=== PATIENT | male | born 1970 | race Caucasian/White ===

== ENCOUNTER 2020-04-29 13:46 | Inpatient (IN) | payer OTHER ==
[2020-04-29 15:53] VITALS: BMI 29.1
[2020-04-29] MEDS ORDERED: MAGNESIUM CITRATE 300 ML BOTTLE PO PRN (17:00)
[2020-04-29] MEDS ORDERED: MAG HYDROX/AL HYDROX/SIMETH 30 ML UNIT-DOSE CUP PO PRN (17:00)
[2020-04-29] MEDS ORDERED: MAGNESIUM HYDROX 2400MG/30ML ORAL SUSPENSION 30 ML CUP PO PRN (17:00)
[2020-04-29] MEDS ORDERED: LOPERAMIDE HCL 2 MG CAPSULE PO PRN (17:00)
[2020-04-29] MEDS ORDERED: guaiFENesin 200 MG/10 ML 10 ML UNIT-DOSE CUPS PO PRN (17:00)
[2020-04-29] MEDS ORDERED: P-EPHED 60MG/TRIPROLIDI 2.5MG TABLET PO PRN (17:00)
[2020-04-29] MEDS: MELATONIN 5 MG TABLETS PO SCH (21:04)
[2020-04-29] MEDS: hydrOXYzine PAMOATE 25 MG CAPSULE (FP) PO PRN (21:05)
[2020-04-29] MEDS: PANTOPRAZOLE 40 MG TABLET PO SCH (21:05)
[2020-04-29] MEDS: THIAMINE HCL 100 MG TABLET (FP) PO SCH (21:05)
[2020-04-29] MEDS ORDERED: THIAMINE HCL 100 MG TABLET (FP) PO SCH (22:00)
[2020-04-30] MEDS: PRENATAL VITAMINS W/ FOLIC ACID TABLET (FP) PO SCH (10:49)
[2020-04-30] MEDS: PANTOPRAZOLE 40 MG TABLET PO SCH ×2 (10:50→21:54)
[2020-04-30] MEDS: THIAMINE HCL 100 MG TABLET (FP) PO SCH ×2 (10:50→21:55)
[2020-04-30] MEDS: hydrOXYzine PAMOATE 25 MG CAPSULE (FP) PO PRN ×2 (10:51→21:54)
[2020-04-30 11:41] LABS: ALBUMIN 3.5 g/dl (3.4-5.0); CALCIUM 9.1 mg/dL (8.5-10.1)
[2020-04-30 11:43] LABS: BLOOD UREA NITROGEN 18.1 mg/dL (7-18); HEMATOCRIT 28.9 % (35.4-49); HEMOGLOBIN 9.6 GM/dL (11.7-16.9); MCH 30.6 pg (25.7-33.7); MCHC 33.1 g/dl (32.0-35.9); MEAN CELL VOLUME 92.5 fl (80-96); MEAN PLT VOLUME 8.8 fl (7.5-11.1); PLATELET COUNT 484 K/MM3 (134-434); RBC 3.12 M/mm3 (4.00-5.60); RDW 19.4 % (11.9-15.9); WHITE BLOOD COUNT 7.6 K/mm3 (4.0-10.0)
[2020-04-30 11:44] LABS: CREATININE 0.8 mg/dL (0.55-1.3)
[2020-04-30 11:45] LABS: BILIRUBIN,TOTAL 0.6 mg/dL (0.2-1); TOT PROT 6.4 g/dl (6.4-8.2)
[2020-04-30 11:49] LABS: POTASSIUM 4.4 mmol/L (3.5-5.1)
[2020-04-30] MEDS: FOLIC ACID 1 MG TABLET (FP) PO SCH (13:44)
[2020-04-30] MEDS: FERROUS SO4 325 MG TABLET (FP) PO SCH (18:36)
[2020-04-30] MEDS: MELATONIN 5 MG TABLETS PO SCH (21:54)
[2020-04-30] MEDS: MIRTAZAPINE 30 MG TABLET PO SCH (21:56)
[2020-05-01 00:26] LABS: PH,URINE 5.5 (5.0-8.0); URINE APPEARANCE CLEAR; URINE BILIRUBIN NEGATIVE (NEGATIVE); URINE COLOR YELLOW; URINE GLUCOSE (UA) NEGATIVE (NEGATIVE); URINE KETONE NEGATIVE (NEGATIVE); URINE LEUK ESTERASE NEGATIVE (NEGATIVE); URINE NITRITE NEGATIVE (NEGATIVE); URINE PROTEIN NEGATIVE (NEGATIVE); URINE UROBILINOGEN 0.2 mg/dL (0.2-1.0)
[2020-05-01] MEDS: FERROUS SO4 325 MG TABLET (FP) PO SCH ×3 (07:14→17:39)
[2020-05-01] MEDS: FOLIC ACID 1 MG TABLET (FP) PO SCH (10:02)
[2020-05-01] MEDS: PANTOPRAZOLE 40 MG TABLET PO SCH ×2 (10:02→21:20)
[2020-05-01] MEDS: PRENATAL VITAMINS W/ FOLIC ACID TABLET (FP) PO SCH (10:02)
[2020-05-01] MEDS: THIAMINE HCL 100 MG TABLET (FP) PO SCH ×2 (10:04→21:20)
[2020-05-01] MEDS: NALTREXONE HCL 50 MG TABLET PO SCH (14:29)
[2020-05-01] MEDS: MELATONIN 5 MG TABLETS PO SCH (21:20)
[2020-05-01] MEDS: MIRTAZAPINE 30 MG TABLET PO SCH (21:20)
[2020-05-01] MEDS: hydrOXYzine PAMOATE 25 MG CAPSULE (FP) PO PRN (21:20)
[2020-05-02] MEDS ORDERED: MASKS NR ONE (06:01)
[2020-05-02] MEDS: FERROUS SO4 325 MG TABLET (FP) PO SCH ×3 (07:11→17:08)
[2020-05-02] MEDS: THIAMINE HCL 100 MG TABLET (FP) PO SCH ×2 (10:45→21:59)
[2020-05-02] MEDS: PANTOPRAZOLE 40 MG TABLET PO SCH ×2 (10:45→21:59)
[2020-05-02] MEDS: FOLIC ACID 1 MG TABLET (FP) PO SCH (10:45)
[2020-05-02] MEDS: NALTREXONE HCL 50 MG TABLET PO SCH (10:45)
[2020-05-02] MEDS: PRENATAL VITAMINS W/ FOLIC ACID TABLET (FP) PO SCH (10:45)
[2020-05-02] MEDS: MIRTAZAPINE 30 MG TABLET PO SCH (21:59)
[2020-05-02] MEDS: MELATONIN 5 MG TABLETS PO SCH (21:59)
[2020-05-03] MEDS: FERROUS SO4 325 MG TABLET (FP) PO SCH ×3 (07:12→17:38)
[2020-05-03] MEDS ORDERED: PT OWN MED DRAWER 7, Y5N ONE (09:39)
[2020-05-03] MEDS: FOLIC ACID 1 MG TABLET (FP) PO SCH (10:54)
[2020-05-03] MEDS: NALTREXONE HCL 50 MG TABLET PO SCH (10:54)
[2020-05-03] MEDS: THIAMINE HCL 100 MG TABLET (FP) PO SCH ×2 (10:54→22:06)
[2020-05-03] MEDS: PRENATAL VITAMINS W/ FOLIC ACID TABLET (FP) PO SCH (10:54)
[2020-05-03] MEDS: PANTOPRAZOLE 40 MG TABLET PO SCH ×2 (10:54→22:06)
[2020-05-03] MEDS: MIRTAZAPINE 30 MG TABLET PO SCH (22:06)
[2020-05-03] MEDS: MELATONIN 5 MG TABLETS PO SCH (22:07)
[2020-05-03] MEDS: hydrOXYzine PAMOATE 25 MG CAPSULE (FP) PO PRN (22:07)
[2020-05-04] MEDS: FERROUS SO4 325 MG TABLET (FP) PO SCH ×3 (08:34→18:09)
[2020-05-04] MEDS: PANTOPRAZOLE 40 MG TABLET PO SCH ×2 (10:33→21:41)
[2020-05-04] MEDS: PRENATAL VITAMINS W/ FOLIC ACID TABLET (FP) PO SCH (10:33)
[2020-05-04] MEDS: FOLIC ACID 1 MG TABLET (FP) PO SCH (10:33)
[2020-05-04] MEDS: hydrOXYzine PAMOATE 25 MG CAPSULE (FP) PO PRN ×2 (10:33→21:41)
[2020-05-04] MEDS: NALTREXONE HCL 50 MG TABLET PO SCH (10:33)
[2020-05-04] MEDS: THIAMINE HCL 100 MG TABLET (FP) PO SCH ×2 (10:34→21:41)
[2020-05-04] MEDS: MELATONIN 5 MG TABLETS PO SCH (21:41)
[2020-05-04] MEDS: MIRTAZAPINE 30 MG TABLET PO SCH (21:41)
[2020-05-05] MEDS: FERROUS SO4 325 MG TABLET (FP) PO SCH ×3 (07:34→17:36)
[2020-05-05] MEDS: PRENATAL VITAMINS W/ FOLIC ACID TABLET (FP) PO SCH (10:33)
[2020-05-05] MEDS: PANTOPRAZOLE 40 MG TABLET PO SCH ×2 (10:34→21:55)
[2020-05-05] MEDS: NALTREXONE HCL 50 MG TABLET PO SCH (10:34)
[2020-05-05] MEDS: FOLIC ACID 1 MG TABLET (FP) PO SCH (10:34)
[2020-05-05] MEDS: THIAMINE HCL 100 MG TABLET (FP) PO SCH ×2 (10:35→21:55)
[2020-05-05] MEDS ORDERED: PT OWN MED DRAWER 7, Y5N ONE (10:43)
[2020-05-05] MEDS: NICOTINE 21 MG/24 HOURS TOPICAL PATCH TD SCH (12:09)
[2020-05-05] MEDS: MIRTAZAPINE 30 MG TABLET PO SCH (21:55)
[2020-05-05] MEDS: hydrOXYzine PAMOATE 25 MG CAPSULE (FP) PO PRN (21:56)
[2020-05-05] MEDS: MELATONIN 5 MG TABLETS PO SCH (21:56)
[2020-05-06] MEDS: FERROUS SO4 325 MG TABLET (FP) PO SCH ×3 (07:12→16:58)
[2020-05-06] MEDS: PANTOPRAZOLE 40 MG TABLET PO SCH ×2 (10:32→22:01)
[2020-05-06] MEDS: PRENATAL VITAMINS W/ FOLIC ACID TABLET (FP) PO SCH (10:32)
[2020-05-06] MEDS: FOLIC ACID 1 MG TABLET (FP) PO SCH (10:32)
[2020-05-06] MEDS: THIAMINE HCL 100 MG TABLET (FP) PO SCH ×2 (10:33→22:01)
[2020-05-06] MEDS: NALTREXONE HCL 50 MG TABLET PO SCH (10:33)
[2020-05-06] MEDS: NICOTINE 21 MG/24 HOURS TOPICAL PATCH TD SCH (10:34)
[2020-05-06] MEDS: NICOTINE POLACRILEX 4 MG GUM BUC PRN ×3 (10:34→16:58)
[2020-05-06] MEDS: MIRTAZAPINE 30 MG TABLET PO SCH (22:01)
[2020-05-06] MEDS: hydrOXYzine PAMOATE 25 MG CAPSULE (FP) PO PRN (22:01)
[2020-05-06] MEDS: MELATONIN 5 MG TABLETS PO SCH (22:01)
[2020-05-07] MEDS: FERROUS SO4 325 MG TABLET (FP) PO SCH ×3 (07:02→16:54)
[2020-05-07] MEDS: FOLIC ACID 1 MG TABLET (FP) PO SCH (10:42)
[2020-05-07] MEDS: PRENATAL VITAMINS W/ FOLIC ACID TABLET (FP) PO SCH (10:42)
[2020-05-07] MEDS: THIAMINE HCL 100 MG TABLET (FP) PO SCH ×2 (10:42→21:04)
[2020-05-07] MEDS: PANTOPRAZOLE 40 MG TABLET PO SCH ×2 (10:42→21:04)
[2020-05-07] MEDS: NALTREXONE HCL 50 MG TABLET PO SCH (10:42)
[2020-05-07] MEDS: NICOTINE 21 MG/24 HOURS TOPICAL PATCH TD SCH (10:43)
[2020-05-07] MEDS: NICOTINE POLACRILEX 4 MG GUM BUC PRN ×3 (10:44→21:05)
[2020-05-07] MEDS: MELATONIN 5 MG TABLETS PO SCH (21:04)
[2020-05-07] MEDS: MIRTAZAPINE 30 MG TABLET PO SCH (21:04)
[2020-05-07] MEDS: hydrOXYzine PAMOATE 25 MG CAPSULE (FP) PO PRN (21:05)
[2020-05-08] MEDS: FERROUS SO4 325 MG TABLET (FP) PO SCH ×3 (07:16→17:30)
[2020-05-08] MEDS: THIAMINE HCL 100 MG TABLET (FP) PO SCH ×2 (10:43→22:06)
[2020-05-08] MEDS: PANTOPRAZOLE 40 MG TABLET PO SCH ×2 (10:43→22:06)
[2020-05-08] MEDS: PRENATAL VITAMINS W/ FOLIC ACID TABLET (FP) PO SCH (10:43)
[2020-05-08] MEDS: NICOTINE 21 MG/24 HOURS TOPICAL PATCH TD SCH (10:43)
[2020-05-08] MEDS: FOLIC ACID 1 MG TABLET (FP) PO SCH (10:43)
[2020-05-08] MEDS: NALTREXONE HCL 50 MG TABLET PO SCH (10:44)
[2020-05-08] MEDS: NICOTINE POLACRILEX 4 MG GUM BUC PRN ×3 (10:45→22:07)
[2020-05-08] MEDS: hydrOXYzine PAMOATE 25 MG CAPSULE (FP) PO PRN (22:06)
[2020-05-08] MEDS: MELATONIN 5 MG TABLETS PO SCH (22:06)
[2020-05-08] MEDS: MIRTAZAPINE 30 MG TABLET PO SCH (22:07)
[2020-05-09] MEDS: FERROUS SO4 325 MG TABLET (FP) PO SCH ×3 (07:02→17:39)
[2020-05-09] MEDS: THIAMINE HCL 100 MG TABLET (FP) PO SCH ×2 (10:26→21:46)
[2020-05-09] MEDS: FOLIC ACID 1 MG TABLET (FP) PO SCH (10:26)
[2020-05-09] MEDS: PANTOPRAZOLE 40 MG TABLET PO SCH ×2 (10:26→21:46)
[2020-05-09] MEDS: PRENATAL VITAMINS W/ FOLIC ACID TABLET (FP) PO SCH (10:26)
[2020-05-09] MEDS: NICOTINE 21 MG/24 HOURS TOPICAL PATCH TD SCH (10:27)
[2020-05-09] MEDS: NALTREXONE HCL 50 MG TABLET PO SCH (10:27)
[2020-05-09] MEDS: NICOTINE POLACRILEX 4 MG GUM BUC PRN ×3 (10:29→21:47)
[2020-05-09] MEDS: ASPIRIN 81 MG CHEWABLE TABLETS PO SCH (14:49)
[2020-05-09] MEDS: NIFEdipine E.R. 30 MG TABLET PO SCH (14:49)
[2020-05-09] MEDS: hydrOXYzine PAMOATE 25 MG CAPSULE (FP) PO PRN (21:46)
[2020-05-09] MEDS: MELATONIN 5 MG TABLETS PO SCH (21:46)
[2020-05-09] MEDS: MIRTAZAPINE 30 MG TABLET PO SCH (21:46)
[2020-05-10] MEDS: FERROUS SO4 325 MG TABLET (FP) PO SCH ×3 (07:35→17:16)
[2020-05-10] MEDS: PANTOPRAZOLE 40 MG TABLET PO SCH ×2 (10:07→21:21)
[2020-05-10] MEDS: PRENATAL VITAMINS W/ FOLIC ACID TABLET (FP) PO SCH (10:07)
[2020-05-10] MEDS: hydrOXYzine PAMOATE 25 MG CAPSULE (FP) PO PRN ×2 (10:07→21:21)
[2020-05-10] MEDS: NIFEdipine E.R. 30 MG TABLET PO SCH (10:07)
[2020-05-10] MEDS: ASPIRIN 81 MG CHEWABLE TABLETS PO SCH (10:07)
[2020-05-10] MEDS: NALTREXONE HCL 50 MG TABLET PO SCH (10:08)
[2020-05-10] MEDS: NICOTINE POLACRILEX 4 MG GUM BUC PRN ×2 (10:08→12:11)
[2020-05-10] MEDS: THIAMINE HCL 100 MG TABLET (FP) PO SCH ×2 (10:08→21:21)
[2020-05-10] MEDS: NICOTINE 21 MG/24 HOURS TOPICAL PATCH TD SCH (10:08)
[2020-05-10] MEDS: FOLIC ACID 1 MG TABLET (FP) PO SCH (10:08)
[2020-05-10] MEDS: MELATONIN 5 MG TABLETS PO SCH (21:20)
[2020-05-10] MEDS: MIRTAZAPINE 30 MG TABLET PO SCH (21:21)
[2020-05-11] MEDS: FERROUS SO4 325 MG TABLET (FP) PO SCH ×3 (07:23→17:09)
[2020-05-11] MEDS: PRENATAL VITAMINS W/ FOLIC ACID TABLET (FP) PO SCH (10:01)
[2020-05-11] MEDS: NALTREXONE HCL 50 MG TABLET PO SCH (10:01)
[2020-05-11] MEDS: ASPIRIN 81 MG CHEWABLE TABLETS PO SCH (10:01)
[2020-05-11] MEDS: NIFEdipine E.R. 30 MG TABLET PO SCH (10:01)
[2020-05-11] MEDS: PANTOPRAZOLE 40 MG TABLET PO SCH ×2 (10:01→21:57)
[2020-05-11] MEDS: NICOTINE 21 MG/24 HOURS TOPICAL PATCH TD SCH (10:01)
[2020-05-11] MEDS: FOLIC ACID 1 MG TABLET (FP) PO SCH (10:01)
[2020-05-11] MEDS: NICOTINE POLACRILEX 4 MG GUM BUC PRN (10:05)
[2020-05-11] MEDS: THIAMINE HCL 100 MG TABLET (FP) PO SCH ×2 (10:54→21:57)
[2020-05-11] MEDS: MIRTAZAPINE 30 MG TABLET PO SCH (21:57)
[2020-05-11] MEDS: hydrOXYzine PAMOATE 25 MG CAPSULE (FP) PO PRN (21:57)
[2020-05-11] MEDS: MELATONIN 5 MG TABLETS PO SCH (21:58)
[2020-05-12] MEDS: PRENATAL VITAMINS W/ FOLIC ACID TABLET (FP) PO SCH (10:22)
[2020-05-12] MEDS: FERROUS SO4 325 MG TABLET (FP) PO SCH ×3 (10:23→17:31)
[2020-05-12] MEDS: ASPIRIN 81 MG CHEWABLE TABLETS PO SCH (10:23)
[2020-05-12] MEDS: PANTOPRAZOLE 40 MG TABLET PO SCH ×2 (10:23→21:26)
[2020-05-12] MEDS: THIAMINE HCL 100 MG TABLET (FP) PO SCH ×2 (10:23→21:26)
[2020-05-12] MEDS: NALTREXONE HCL 50 MG TABLET PO SCH (10:24)
[2020-05-12] MEDS: NIFEdipine E.R. 30 MG TABLET PO SCH (10:24)
[2020-05-12] MEDS: NICOTINE 21 MG/24 HOURS TOPICAL PATCH TD SCH (10:25)
[2020-05-12] MEDS: FOLIC ACID 1 MG TABLET (FP) PO SCH (10:25)
[2020-05-12] MEDS: NICOTINE POLACRILEX 4 MG GUM BUC PRN ×3 (10:26→21:27)
[2020-05-12] MEDS ORDERED: MASKS NR ONE (20:00)
[2020-05-12] MEDS: MELATONIN 5 MG TABLETS PO SCH (21:27)
[2020-05-12] MEDS: hydrOXYzine PAMOATE 25 MG CAPSULE (FP) PO PRN (21:27)
[2020-05-12] MEDS: MIRTAZAPINE 30 MG TABLET PO SCH (21:27)
[2020-05-13] MEDS: FERROUS SO4 325 MG TABLET (FP) PO SCH ×3 (07:13→17:42)
[2020-05-13] MEDS: NICOTINE 21 MG/24 HOURS TOPICAL PATCH TD SCH (10:17)
[2020-05-13] MEDS: PRENATAL VITAMINS W/ FOLIC ACID TABLET (FP) PO SCH (10:17)
[2020-05-13] MEDS: ASPIRIN 81 MG CHEWABLE TABLETS PO SCH (10:17)
[2020-05-13] MEDS: PANTOPRAZOLE 40 MG TABLET PO SCH ×2 (10:17→22:05)
[2020-05-13] MEDS: THIAMINE HCL 100 MG TABLET (FP) PO SCH ×2 (10:17→22:05)
[2020-05-13] MEDS: NALTREXONE HCL 50 MG TABLET PO SCH (10:18)
[2020-05-13] MEDS: FOLIC ACID 1 MG TABLET (FP) PO SCH (10:18)
[2020-05-13] MEDS: NIFEdipine E.R. 30 MG TABLET PO SCH (10:18)
[2020-05-13] MEDS: NICOTINE POLACRILEX 4 MG GUM BUC PRN ×2 (10:23→17:42)
[2020-05-13] MEDS: MIRTAZAPINE 30 MG TABLET PO SCH (22:05)
[2020-05-13] MEDS: MELATONIN 5 MG TABLETS PO SCH (22:05)
[2020-05-13] MEDS: hydrOXYzine PAMOATE 25 MG CAPSULE (FP) PO PRN (22:06)
[2020-05-14] MEDS: FERROUS SO4 325 MG TABLET (FP) PO SCH ×3 (07:31→17:15)
[2020-05-14] MEDS: ASPIRIN 81 MG CHEWABLE TABLETS PO SCH (10:04)
[2020-05-14] MEDS: PANTOPRAZOLE 40 MG TABLET PO SCH ×2 (10:04→21:40)
[2020-05-14] MEDS: THIAMINE HCL 100 MG TABLET (FP) PO SCH ×2 (10:04→21:40)
[2020-05-14] MEDS: NICOTINE 21 MG/24 HOURS TOPICAL PATCH TD SCH (10:04)
[2020-05-14] MEDS: PRENATAL VITAMINS W/ FOLIC ACID TABLET (FP) PO SCH (10:04)
[2020-05-14] MEDS: NALTREXONE HCL 50 MG TABLET PO SCH (10:05)
[2020-05-14] MEDS: NIFEdipine E.R. 30 MG TABLET PO SCH (10:05)
[2020-05-14] MEDS: FOLIC ACID 1 MG TABLET (FP) PO SCH (10:05)
[2020-05-14] MEDS: hydrOXYzine PAMOATE 25 MG CAPSULE (FP) PO PRN ×2 (10:06→21:40)
[2020-05-14] MEDS: NICOTINE POLACRILEX 4 MG GUM BUC PRN ×2 (10:07→21:42)
[2020-05-14] MEDS: MELATONIN 5 MG TABLETS PO SCH (21:40)
[2020-05-14] MEDS: MIRTAZAPINE 30 MG TABLET PO SCH (21:40)
[2020-05-15] MEDS: FERROUS SO4 325 MG TABLET (FP) PO SCH ×3 (07:28→17:22)
[2020-05-15] MEDS: NIFEdipine E.R. 30 MG TABLET PO SCH (09:59)
[2020-05-15] MEDS: PRENATAL VITAMINS W/ FOLIC ACID TABLET (FP) PO SCH (09:59)
[2020-05-15] MEDS: PANTOPRAZOLE 40 MG TABLET PO SCH ×2 (09:59→21:06)
[2020-05-15] MEDS: ASPIRIN 81 MG CHEWABLE TABLETS PO SCH (09:59)
[2020-05-15] MEDS: NALTREXONE HCL 50 MG TABLET PO SCH (10:00)
[2020-05-15] MEDS: THIAMINE HCL 100 MG TABLET (FP) PO SCH ×2 (10:00→21:06)
[2020-05-15] MEDS: NICOTINE 21 MG/24 HOURS TOPICAL PATCH TD SCH (10:00)
[2020-05-15] MEDS: FOLIC ACID 1 MG TABLET (FP) PO SCH (10:00)
[2020-05-15] MEDS: MIRTAZAPINE 30 MG TABLET PO SCH (21:06)
[2020-05-15] MEDS: hydrOXYzine PAMOATE 25 MG CAPSULE (FP) PO PRN (21:06)
[2020-05-15] MEDS: MELATONIN 5 MG TABLETS PO SCH (21:06)
[2020-05-15] MEDS: NICOTINE POLACRILEX 4 MG GUM BUC PRN (21:06)
[2020-05-16] MEDS: FERROUS SO4 325 MG TABLET (FP) PO SCH ×3 (07:10→17:03)
[2020-05-16] MEDS: PRENATAL VITAMINS W/ FOLIC ACID TABLET (FP) PO SCH (09:48)
[2020-05-16] MEDS: PANTOPRAZOLE 40 MG TABLET PO SCH ×2 (09:50→21:35)
[2020-05-16] MEDS: THIAMINE HCL 100 MG TABLET (FP) PO SCH ×2 (09:50→21:35)
[2020-05-16] MEDS: ASPIRIN 81 MG CHEWABLE TABLETS PO SCH (09:50)
[2020-05-16] MEDS: hydrOXYzine PAMOATE 25 MG CAPSULE (FP) PO PRN ×2 (09:50→21:35)
[2020-05-16] MEDS: NICOTINE POLACRILEX 4 MG GUM BUC PRN ×3 (09:50→21:36)
[2020-05-16] MEDS: FOLIC ACID 1 MG TABLET (FP) PO SCH (09:51)
[2020-05-16] MEDS: NICOTINE 21 MG/24 HOURS TOPICAL PATCH TD SCH (09:52)
[2020-05-16] MEDS: NIFEdipine E.R. 30 MG TABLET PO SCH (09:53)
[2020-05-16] MEDS: NALTREXONE HCL 50 MG TABLET PO SCH (09:53)
[2020-05-16] MEDS: MIRTAZAPINE 30 MG TABLET PO SCH (21:35)
[2020-05-16] MEDS: MELATONIN 5 MG TABLETS PO SCH (21:35)
[2020-05-17] MEDS: FERROUS SO4 325 MG TABLET (FP) PO SCH ×3 (07:01→17:47)
[2020-05-17] MEDS: PRENATAL VITAMINS W/ FOLIC ACID TABLET (FP) PO SCH (09:44)
[2020-05-17] MEDS: FOLIC ACID 1 MG TABLET (FP) PO SCH (09:44)
[2020-05-17] MEDS: ASPIRIN 81 MG CHEWABLE TABLETS PO SCH (09:44)
[2020-05-17] MEDS: PANTOPRAZOLE 40 MG TABLET PO SCH ×2 (09:44→21:56)
[2020-05-17] MEDS: THIAMINE HCL 100 MG TABLET (FP) PO SCH ×2 (09:44→21:56)
[2020-05-17] MEDS: NICOTINE 21 MG/24 HOURS TOPICAL PATCH TD SCH (09:44)
[2020-05-17] MEDS: NIFEdipine E.R. 30 MG TABLET PO SCH (09:45)
[2020-05-17] MEDS: NALTREXONE HCL 50 MG TABLET PO SCH (09:45)
[2020-05-17] MEDS: hydrOXYzine PAMOATE 25 MG CAPSULE (FP) PO PRN ×2 (09:46→21:56)
[2020-05-17] MEDS: NICOTINE POLACRILEX 4 MG GUM BUC PRN ×3 (09:47→21:57)
[2020-05-17] MEDS: MIRTAZAPINE 30 MG TABLET PO SCH (21:56)
[2020-05-17] MEDS: MELATONIN 5 MG TABLETS PO SCH (21:56)
[2020-05-18] MEDS: FERROUS SO4 325 MG TABLET (FP) PO SCH ×3 (07:03→17:04)
[2020-05-18] MEDS: NIFEdipine E.R. 30 MG TABLET PO SCH (09:42)
[2020-05-18] MEDS: THIAMINE HCL 100 MG TABLET (FP) PO SCH ×2 (09:42→21:23)
[2020-05-18] MEDS: PRENATAL VITAMINS W/ FOLIC ACID TABLET (FP) PO SCH (09:42)
[2020-05-18] MEDS: ASPIRIN 81 MG CHEWABLE TABLETS PO SCH (09:42)
[2020-05-18] MEDS: PANTOPRAZOLE 40 MG TABLET PO SCH ×2 (09:42→21:22)
[2020-05-18] MEDS: FOLIC ACID 1 MG TABLET (FP) PO SCH (09:42)
[2020-05-18] MEDS: NALTREXONE HCL 50 MG TABLET PO SCH (09:43)
[2020-05-18] MEDS: NICOTINE 21 MG/24 HOURS TOPICAL PATCH TD SCH (09:43)
[2020-05-18] MEDS: NICOTINE POLACRILEX 4 MG GUM BUC PRN ×4 (09:44→21:23)
[2020-05-18] MEDS: MIRTAZAPINE 30 MG TABLET PO SCH (21:22)
[2020-05-18] MEDS: MELATONIN 5 MG TABLETS PO SCH (21:23)
[2020-05-18] MEDS: hydrOXYzine PAMOATE 25 MG CAPSULE (FP) PO PRN (21:23)
[2020-05-19 06:58] VITALS: BP 141/92; PULSE 97; TEMP 97.5
[2020-05-19] MEDS: FERROUS SO4 325 MG TABLET (FP) PO SCH (07:18)
[2020-05-19] MEDS ORDERED: PT OWN MED DRAWER 7, Y5N ONE (09:03)
[2020-05-19] MEDS: PRENATAL VITAMINS W/ FOLIC ACID TABLET (FP) PO SCH (10:04)
[2020-05-19] MEDS: FOLIC ACID 1 MG TABLET (FP) PO SCH (10:04)
[2020-05-19] MEDS: PANTOPRAZOLE 40 MG TABLET PO SCH (10:04)
[2020-05-19] MEDS: NIFEdipine E.R. 30 MG TABLET PO SCH (10:04)
[2020-05-19] MEDS: NALTREXONE HCL 50 MG TABLET PO SCH (10:04)
[2020-05-19] MEDS: NICOTINE 21 MG/24 HOURS TOPICAL PATCH TD SCH (10:04)
[2020-05-19] MEDS: ASPIRIN 81 MG CHEWABLE TABLETS PO SCH (10:04)
[2020-05-19] MEDS: NICOTINE POLACRILEX 4 MG GUM BUC PRN (10:05)
[2020-05-19] MEDS: THIAMINE HCL 100 MG TABLET (FP) PO SCH (10:07)
== END 2020-05-19 10:13 | disposition home or self-care (01) | DRG 772 ==
LOC: YASAS 13:46 → Y5N 18:07
PROVIDERS: ADMIT Allergy & Immunology; ATTEND Allergy & Immunology
PROC: HZ42ZZZ Group Counseling for Substance Abuse Treatment, Cognitive-Behavioral (ICD-10-PCS; principal; 2020-04-29)
DX: F10.20 Alcohol dependence, uncomplicated (principal); F10.24 Alcohol dependence with alcohol-induced mood disorder; F10.282 Alcohol dependence with alcohol-induced sleep disorder; F17.210 Nicotine dependence, cigarettes, uncomplicated; D64.9 Anemia, unspecified; I10 Essential (primary) hypertension; K21.9 Gastro-esophageal reflux disease without esophagitis; K44.9 Diaphragmatic hernia without obstruction or gangrene; K64.8 Other hemorrhoids; B19.10 Unspecified viral hepatitis B without hepatic coma; Z87.19 Personal history of other diseases of the digestive system; R60.0 Localized edema; Z59.0 Homelessness
CPT/HCPCS: 36415; 80053; 81003; 85027; 86780; C9803; U0003

== ENCOUNTER 2021-03-27 11:01 | Inpatient (IN) | payer OTHER ==
[2021-03-27] MEDS ORDERED: MAG HYDROX/AL HYDROX/SIMETH 30 ML UNIT-DOSE CUP PO PRN (11:26)
[2021-03-27] MEDS ORDERED: ACETAMINOPHEN 325 MG TABLET (FP) PO PRN ×2 (11:26)
[2021-03-27] MEDS ORDERED: BISMUTH SUBSALICYLATE 262 MG/15 ML BTL PO PRN (11:26)
[2021-03-27] MEDS ORDERED: ONDANSETRON *ODT* 4 MG TABLET SL PRN (11:26)
[2021-03-27] MEDS ORDERED: MAGNESIUM HYDROX 2400MG/30ML ORAL SUSPENSION 30 ML CUP PO PRN (11:26)
[2021-03-27] MEDS ORDERED: NICOTINE 10 MG CARTRIDGE (INHALER) IH PRN (11:26)
[2021-03-27] MEDS ORDERED: MENTHOL/PHENOL 1 EACH UD MM PRN (11:26)
[2021-03-27] MEDS ORDERED: MAGNESIUM CITRATE 300 ML BOTTLE PO PRN (11:26)
[2021-03-27] MEDS ORDERED: LORazepam 1 MG TABLET PO PRN (11:26)
[2021-03-27] MEDS ORDERED: IBUPROFEN 400 MG TABLET (FP) PO PRN (11:26)
[2021-03-27] MEDS ORDERED: NICOTINE 7 MG/24 HOURS TOPICAL PATCH TD SCH (11:30)
[2021-03-27 11:57] VITALS: BMI 26.0
[2021-03-27] MEDS: PRENATAL VITAMINS W/ FOLIC ACID TABLET (FP) PO SCH (13:56)
[2021-03-27] MEDS: LORazepam 2 MG TABLET PO SCH ×3 (13:56→22:16)
[2021-03-27] MEDS: hydrOXYzine PAMOATE 25 MG CAPSULE (FP) PO SCH ×3 (14:46→22:16)
[2021-03-27 14:48] LABS: HEMATOCRIT 36.4 % (35.4-49); HEMOGLOBIN 12.1 GM/dL (11.7-16.9); MCH 32.8 pg (25.7-33.7); MCHC 33.3 g/dl (32.0-35.9); MEAN CELL VOLUME 98.6 fl (80-96); PLATELET COUNT 230 10^3/uL (134-434); RBC 3.69 M/mm3 (4.00-5.60); RDW 16.4 % (11.9-15.9); WHITE BLOOD COUNT 7.4 K/mm3 (4.0-10.0)
[2021-03-27 15:00] LABS: CALCIUM 8.5 mg/dL (8.5-10.1)
[2021-03-27 15:01] LABS: ALBUMIN 3.5 g/dl (3.4-5.0); BLOOD UREA NITROGEN 8.7 mg/dL (7-18)
[2021-03-27 15:04] LABS: CREATININE 0.8 mg/dL (0.55-1.3)
[2021-03-27 15:05] LABS: BILIRUBIN,TOTAL 1.4 mg/dL (0.2-1)
[2021-03-27 15:06] LABS: TOT PROT 6.8 g/dl (6.4-8.2)
[2021-03-27] MEDS ORDERED: cloNIDine HCL 0.1 MG TABLET PO ONE ×2 (17:33→21:30)
[2021-03-27] MEDS: MELATONIN 5 MG TABLETS PO SCH (22:16)
[2021-03-27] MEDS: MIRTAZAPINE 15 MG TABLET (FP) PO SCH (22:16)
[2021-03-27] MEDS: THIAMINE HCL 100 MG TABLET (FP) PO SCH (22:16)
[2021-03-28] MEDS: LORazepam 2 MG TABLET PO SCH ×4 (05:45→22:18)
[2021-03-28] MEDS: hydrOXYzine PAMOATE 25 MG CAPSULE (FP) PO SCH ×5 (05:45→22:18)
[2021-03-28] MEDS: PRENATAL VITAMINS W/ FOLIC ACID TABLET (FP) PO SCH (10:56)
[2021-03-28] MEDS: NICOTINE 21 MG/24 HOURS TOPICAL PATCH TD SCH (10:56)
[2021-03-28] MEDS: ASPIRIN 81 MG CHEWABLE TABLETS PO SCH (10:56)
[2021-03-28] MEDS: PANTOPRAZOLE 40 MG TABLET PO SCH (10:56)
[2021-03-28] MEDS: NIFEdipine E.R. 30 MG TABLET PO SCH (10:56)
[2021-03-28] MEDS: MIRTAZAPINE 15 MG TABLET (FP) PO SCH (22:18)
[2021-03-28] MEDS: METHOCARBAMOL 500 MG TABLET PO PRN (22:18)
[2021-03-28] MEDS: THIAMINE HCL 100 MG TABLET (FP) PO SCH (22:18)
[2021-03-28] MEDS: MELATONIN 5 MG TABLETS PO SCH (22:18)
[2021-03-29] MEDS: LORazepam 1 MG TABLET PO SCH ×4 (05:22→22:14)
[2021-03-29] MEDS: hydrOXYzine PAMOATE 25 MG CAPSULE (FP) PO SCH ×5 (05:22→22:15)
[2021-03-29] MEDS: PRENATAL VITAMINS W/ FOLIC ACID TABLET (FP) PO SCH (10:36)
[2021-03-29] MEDS: ASPIRIN 81 MG CHEWABLE TABLETS PO SCH (10:36)
[2021-03-29] MEDS: NICOTINE 21 MG/24 HOURS TOPICAL PATCH TD SCH (10:36)
[2021-03-29] MEDS: NIFEdipine E.R. 30 MG TABLET PO SCH (10:36)
[2021-03-29] MEDS: PANTOPRAZOLE 40 MG TABLET PO SCH (10:37)
[2021-03-29] MEDS: THIAMINE HCL 100 MG TABLET (FP) PO SCH (22:14)
[2021-03-29] MEDS: MIRTAZAPINE 15 MG TABLET (FP) PO SCH (22:14)
[2021-03-29] MEDS: MELATONIN 5 MG TABLETS PO SCH (22:14)
[2021-03-30] MEDS ORDERED: LORazepam 0.5 MG TABLET PO PRN
[2021-03-30] MEDS: LORazepam 0.5 MG TABLET PO SCH ×4 (05:27→22:25)
[2021-03-30] MEDS: hydrOXYzine PAMOATE 25 MG CAPSULE (FP) PO SCH ×5 (07:15→22:26)
[2021-03-30] MEDS: PRENATAL VITAMINS W/ FOLIC ACID TABLET (FP) PO SCH (10:18)
[2021-03-30] MEDS: ASPIRIN 81 MG CHEWABLE TABLETS PO SCH (10:18)
[2021-03-30] MEDS: METHOCARBAMOL 500 MG TABLET PO PRN (10:18)
[2021-03-30] MEDS: NICOTINE 21 MG/24 HOURS TOPICAL PATCH TD SCH (10:18)
[2021-03-30] MEDS: NIFEdipine E.R. 30 MG TABLET PO SCH (10:18)
[2021-03-30] MEDS: PANTOPRAZOLE 40 MG TABLET PO SCH (10:18)
[2021-03-30 12:59] LABS: BILIRUBIN,TOTAL 0.9 mg/dL (0.2-1)
[2021-03-30] MEDS: MELATONIN 5 MG TABLETS PO SCH (22:26)
[2021-03-30] MEDS: MIRTAZAPINE 15 MG TABLET (FP) PO SCH (22:26)
[2021-03-30] MEDS: THIAMINE HCL 100 MG TABLET (FP) PO SCH (22:26)
[2021-03-31] MEDS ORDERED: LORazepam 0.5 MG TABLET PO ONE (05:00)
[2021-03-31] MEDS: hydrOXYzine PAMOATE 25 MG CAPSULE (FP) PO SCH ×4 (05:09→18:20)
[2021-03-31] MEDS: NIFEdipine E.R. 30 MG TABLET PO SCH (10:15)
[2021-03-31] MEDS: ASPIRIN 81 MG CHEWABLE TABLETS PO SCH (10:15)
[2021-03-31] MEDS: PANTOPRAZOLE 40 MG TABLET PO SCH (10:15)
[2021-03-31] MEDS: NICOTINE 21 MG/24 HOURS TOPICAL PATCH TD SCH (10:15)
[2021-03-31] MEDS: PRENATAL VITAMINS W/ FOLIC ACID TABLET (FP) PO SCH (10:15)
[2021-03-31 17:17] VITALS: BP 134/82; PULSE 86; TEMP 98.2
== END 2021-03-31 18:25 | disposition other institution (70) | DRG 775 ==
LOC: YASAS 11:01 → Y3N 12:59
PROVIDERS: ADMIT Allergy & Immunology; ATTEND Allergy & Immunology
PROC: HZ2ZZZZ Detoxification Services for Substance Abuse Treatment (ICD-10-PCS; principal; 2021-03-27)
DX: F10.230 Alcohol dependence with withdrawal, uncomplicated (principal); F17.210 Nicotine dependence, cigarettes, uncomplicated; F10.282 Alcohol dependence with alcohol-induced sleep disorder; F10.24 Alcohol dependence with alcohol-induced mood disorder; B19.10 Unspecified viral hepatitis B without hepatic coma; I10 Essential (primary) hypertension; R17 Unspecified jaundice; R00.1 Bradycardia, unspecified; R74.01 Elevation of levels of liver transaminase levels; Z86.59 Personal history of other mental and behavioral disorders; Z87.19 Personal history of other diseases of the digestive system; Z86.69 Personal history of other diseases of the nervous system and sense organs
CPT/HCPCS: 36415; 71046-TC-FY; 80053; 82247; 82947; 82962; 83036; 84450; 84460; 85027; 86780; C9803; J0735; U0003; U0005

== ENCOUNTER 2021-03-31 18:35 | Inpatient (IN) | payer OTHER ==
[2021-03-31] MEDS ORDERED: LOPERAMIDE HCL 2 MG CAPSULE PO PRN (21:44)
[2021-03-31] MEDS ORDERED: MAGNESIUM CITRATE 300 ML BOTTLE PO PRN (21:44)
[2021-03-31] MEDS ORDERED: IBUPROFEN 400 MG TABLET (FP) PO PRN (21:44)
[2021-03-31] MEDS ORDERED: MAG HYDROX/AL HYDROX/SIMETH 30 ML UNIT-DOSE CUP PO PRN (21:44)
[2021-03-31] MEDS ORDERED: P-EPHED 60MG/TRIPROLIDI 2.5MG TABLET PO PRN (21:44)
[2021-03-31] MEDS ORDERED: MELATONIN 5 MG TABLETS PO PRN (21:44)
[2021-03-31] MEDS ORDERED: guaiFENesin 200 MG/10 ML 10 ML UNIT-DOSE CUPS PO PRN (21:44)
[2021-03-31] MEDS ORDERED: MAGNESIUM HYDROX 2400MG/30ML ORAL SUSPENSION 30 ML CUP PO PRN (21:44)
[2021-03-31] MEDS ORDERED: ACETAMINOPHEN 325 MG TABLET (FP) PO PRN (21:44)
[2021-03-31] MEDS ORDERED: MENTHOL/PHENOL 1 EACH UD MM PRN (21:44)
[2021-03-31] MEDS: THIAMINE HCL 100 MG TABLET (FP) PO SCH (21:59)
[2021-04-01] MEDS: PRENATAL VITAMINS W/ FOLIC ACID TABLET (FP) PO SCH (10:38)
[2021-04-01] MEDS: THIAMINE HCL 100 MG TABLET (FP) PO SCH (21:16)
[2021-04-01] MEDS ORDERED: MIRTAZAPINE 15 MG TABLET (FP) PO SCH (22:00)
[2021-04-02] MEDS ORDERED: cloNIDine HCL 0.1 MG TABLET PO ONE (07:47)
[2021-04-02] MEDS: NIFEdipine E.R. 30 MG TABLET PO SCH (10:33)
[2021-04-02] MEDS: ASPIRIN COATED 81 MG TABLET.EC PO SCH (10:33)
[2021-04-02] MEDS: PANTOPRAZOLE 40 MG TABLET PO SCH (10:33)
[2021-04-02] MEDS: NALTREXONE HCL 50 MG TABLET PO SCH (10:34)
[2021-04-02] MEDS: PRENATAL VITAMINS W/ FOLIC ACID TABLET (FP) PO SCH (10:34)
[2021-04-02] MEDS: NICOTINE 21 MG/24 HOURS TOPICAL PATCH TD SCH (14:37)
[2021-04-02] MEDS: FERROUS SO4 325 MG TABLET (FP) PO SCH (19:15)
[2021-04-02] MEDS: hydrOXYzine PAMOATE 25 MG CAPSULE (FP) PO PRN (21:34)
[2021-04-02] MEDS: MELATONIN 5 MG TABLETS PO PRN (21:34)
[2021-04-02] MEDS: THIAMINE HCL 100 MG TABLET (FP) PO SCH (21:34)
[2021-04-03] MEDS: PRENATAL VITAMINS W/ FOLIC ACID TABLET (FP) PO SCH (10:22)
[2021-04-03] MEDS: PANTOPRAZOLE 40 MG TABLET PO SCH (10:22)
[2021-04-03] MEDS: NICOTINE 21 MG/24 HOURS TOPICAL PATCH TD SCH (10:22)
[2021-04-03] MEDS: FERROUS SO4 325 MG TABLET (FP) PO SCH (10:22)
[2021-04-03] MEDS: ASPIRIN COATED 81 MG TABLET.EC PO SCH (10:22)
[2021-04-03] MEDS: MIRTAZAPINE 15 MG TABLET (FP) PO SCH (10:23)
[2021-04-03] MEDS: NALTREXONE HCL 50 MG TABLET PO SCH (10:23)
[2021-04-03] MEDS: NIFEdipine E.R. 30 MG TABLET PO SCH (10:23)
[2021-04-03] MEDS: MELATONIN 5 MG TABLETS PO PRN (21:40)
[2021-04-03] MEDS: hydrOXYzine PAMOATE 25 MG CAPSULE (FP) PO PRN (21:40)
[2021-04-03] MEDS: THIAMINE HCL 100 MG TABLET (FP) PO SCH (21:41)
[2021-04-03] MEDS: DOCUSATE SODIUM 100 MG CAPSULE (FP) PO SCH (21:42)
[2021-04-04] MEDS: DOCUSATE SODIUM 100 MG CAPSULE (FP) PO SCH ×3 (07:11→21:26)
[2021-04-04] MEDS: PRENATAL VITAMINS W/ FOLIC ACID TABLET (FP) PO SCH (10:08)
[2021-04-04] MEDS: MIRTAZAPINE 15 MG TABLET (FP) PO SCH (10:08)
[2021-04-04] MEDS: NICOTINE 21 MG/24 HOURS TOPICAL PATCH TD SCH (10:08)
[2021-04-04] MEDS: NIFEdipine E.R. 30 MG TABLET PO SCH (10:08)
[2021-04-04] MEDS: ASPIRIN COATED 81 MG TABLET.EC PO SCH (10:08)
[2021-04-04] MEDS: PANTOPRAZOLE 40 MG TABLET PO SCH (10:08)
[2021-04-04] MEDS: NALTREXONE HCL 50 MG TABLET PO SCH (10:09)
[2021-04-04] MEDS: MELATONIN 5 MG TABLETS PO PRN (21:26)
[2021-04-04] MEDS: hydrOXYzine PAMOATE 25 MG CAPSULE (FP) PO PRN (21:26)
[2021-04-04] MEDS: THIAMINE HCL 100 MG TABLET (FP) PO SCH (21:26)
[2021-04-05] MEDS: DOCUSATE SODIUM 100 MG CAPSULE (FP) PO SCH ×3 (06:41→21:24)
[2021-04-05] MEDS: ASPIRIN COATED 81 MG TABLET.EC PO SCH (10:08)
[2021-04-05] MEDS: PRENATAL VITAMINS W/ FOLIC ACID TABLET (FP) PO SCH (10:09)
[2021-04-05] MEDS: MIRTAZAPINE 15 MG TABLET (FP) PO SCH (10:09)
[2021-04-05] MEDS: NICOTINE 21 MG/24 HOURS TOPICAL PATCH TD SCH (10:09)
[2021-04-05] MEDS: NALTREXONE HCL 50 MG TABLET PO SCH (10:09)
[2021-04-05] MEDS: NIFEdipine E.R. 30 MG TABLET PO SCH (10:09)
[2021-04-05] MEDS: PANTOPRAZOLE 40 MG TABLET PO SCH (10:09)
[2021-04-05] MEDS: THIAMINE HCL 100 MG TABLET (FP) PO SCH (21:23)
[2021-04-05] MEDS: MELATONIN 5 MG TABLETS PO PRN (21:23)
[2021-04-05] MEDS: hydrOXYzine PAMOATE 25 MG CAPSULE (FP) PO PRN (21:23)
[2021-04-06] MEDS: DOCUSATE SODIUM 100 MG CAPSULE (FP) PO SCH ×3 (06:14→21:36)
[2021-04-06] MEDS: PRENATAL VITAMINS W/ FOLIC ACID TABLET (FP) PO SCH (09:54)
[2021-04-06] MEDS: PANTOPRAZOLE 40 MG TABLET PO SCH (09:55)
[2021-04-06] MEDS: MIRTAZAPINE 15 MG TABLET (FP) PO SCH (09:55)
[2021-04-06] MEDS: NALTREXONE HCL 50 MG TABLET PO SCH (09:55)
[2021-04-06] MEDS: ASPIRIN COATED 81 MG TABLET.EC PO SCH (09:55)
[2021-04-06] MEDS: NICOTINE 21 MG/24 HOURS TOPICAL PATCH TD SCH (09:56)
[2021-04-06] MEDS: NIFEdipine E.R. 30 MG TABLET PO SCH (14:26)
[2021-04-06] MEDS: THIAMINE HCL 100 MG TABLET (FP) PO SCH (21:36)
[2021-04-06] MEDS: MELATONIN 5 MG TABLETS PO PRN (21:37)
[2021-04-07] MEDS: DOCUSATE SODIUM 100 MG CAPSULE (FP) PO SCH ×3 (06:45→22:02)
[2021-04-07] MEDS: PANTOPRAZOLE 40 MG TABLET PO SCH (10:23)
[2021-04-07] MEDS: PRENATAL VITAMINS W/ FOLIC ACID TABLET (FP) PO SCH (10:23)
[2021-04-07] MEDS: ASPIRIN COATED 81 MG TABLET.EC PO SCH (10:23)
[2021-04-07] MEDS: MIRTAZAPINE 15 MG TABLET (FP) PO SCH (10:23)
[2021-04-07] MEDS: NICOTINE 21 MG/24 HOURS TOPICAL PATCH TD SCH (10:24)
[2021-04-07] MEDS: NALTREXONE HCL 50 MG TABLET PO SCH (10:25)
[2021-04-07] MEDS: NIFEdipine E.R. 30 MG TABLET PO SCH (13:43)
[2021-04-07] MEDS: THIAMINE HCL 100 MG TABLET (FP) PO SCH (22:01)
[2021-04-07] MEDS: hydrOXYzine PAMOATE 25 MG CAPSULE (FP) PO PRN (22:02)
[2021-04-07] MEDS: MELATONIN 5 MG TABLETS PO PRN (22:02)
[2021-04-08] MEDS: DOCUSATE SODIUM 100 MG CAPSULE (FP) PO SCH ×3 (06:07→21:40)
[2021-04-08] MEDS: PANTOPRAZOLE 40 MG TABLET PO SCH (10:17)
[2021-04-08] MEDS: PRENATAL VITAMINS W/ FOLIC ACID TABLET (FP) PO SCH (10:17)
[2021-04-08] MEDS: NIFEdipine E.R. 30 MG TABLET PO SCH (10:18)
[2021-04-08] MEDS: hydrOXYzine PAMOATE 25 MG CAPSULE (FP) PO PRN ×2 (10:18→21:40)
[2021-04-08] MEDS: MIRTAZAPINE 15 MG TABLET (FP) PO SCH (10:18)
[2021-04-08] MEDS: NICOTINE 21 MG/24 HOURS TOPICAL PATCH TD SCH (10:18)
[2021-04-08] MEDS: ASPIRIN COATED 81 MG TABLET.EC PO SCH (10:18)
[2021-04-08] MEDS: NALTREXONE HCL 50 MG TABLET PO SCH (10:19)
[2021-04-08] MEDS: THIAMINE HCL 100 MG TABLET (FP) PO SCH (21:40)
[2021-04-08] MEDS: MELATONIN 5 MG TABLETS PO PRN (21:40)
[2021-04-09] MEDS: DOCUSATE SODIUM 100 MG CAPSULE (FP) PO SCH ×3 (06:13→21:38)
[2021-04-09] MEDS: PRENATAL VITAMINS W/ FOLIC ACID TABLET (FP) PO SCH (10:46)
[2021-04-09] MEDS: ASPIRIN COATED 81 MG TABLET.EC PO SCH (10:47)
[2021-04-09] MEDS: PANTOPRAZOLE 40 MG TABLET PO SCH (10:47)
[2021-04-09] MEDS: NICOTINE 21 MG/24 HOURS TOPICAL PATCH TD SCH (10:47)
[2021-04-09] MEDS: MIRTAZAPINE 15 MG TABLET (FP) PO SCH (10:47)
[2021-04-09] MEDS: NALTREXONE HCL 50 MG TABLET PO SCH (10:48)
[2021-04-09] MEDS: NIFEdipine E.R. 30 MG TABLET PO SCH (10:48)
[2021-04-09] MEDS: THIAMINE HCL 100 MG TABLET (FP) PO SCH (21:38)
[2021-04-09] MEDS: hydrOXYzine PAMOATE 25 MG CAPSULE (FP) PO PRN (21:38)
[2021-04-09] MEDS: MELATONIN 5 MG TABLETS PO PRN (21:39)
[2021-04-10] MEDS: DOCUSATE SODIUM 100 MG CAPSULE (FP) PO SCH ×3 (06:21→21:23)
[2021-04-10] MEDS: NIFEdipine E.R. 30 MG TABLET PO SCH (10:13)
[2021-04-10] MEDS: PRENATAL VITAMINS W/ FOLIC ACID TABLET (FP) PO SCH (10:13)
[2021-04-10] MEDS: ASPIRIN COATED 81 MG TABLET.EC PO SCH (10:13)
[2021-04-10] MEDS: PANTOPRAZOLE 40 MG TABLET PO SCH (10:13)
[2021-04-10] MEDS: NALTREXONE HCL 50 MG TABLET PO SCH (10:13)
[2021-04-10] MEDS: MIRTAZAPINE 15 MG TABLET (FP) PO SCH (10:13)
[2021-04-10] MEDS: NICOTINE 21 MG/24 HOURS TOPICAL PATCH TD SCH (10:14)
[2021-04-10] MEDS: THIAMINE HCL 100 MG TABLET (FP) PO SCH (21:23)
[2021-04-10] MEDS: MELATONIN 5 MG TABLETS PO PRN (21:23)
[2021-04-11] MEDS: DOCUSATE SODIUM 100 MG CAPSULE (FP) PO SCH ×3 (07:04→21:36)
[2021-04-11] MEDS: metoPROLOL SUCCINATE 25 MG TAB.SR.24H (FP) PO SCH (10:46)
[2021-04-11] MEDS: MIRTAZAPINE 15 MG TABLET (FP) PO SCH (10:46)
[2021-04-11] MEDS: PRENATAL VITAMINS W/ FOLIC ACID TABLET (FP) PO SCH (10:46)
[2021-04-11] MEDS: PANTOPRAZOLE 40 MG TABLET PO SCH (10:46)
[2021-04-11] MEDS: ASPIRIN COATED 81 MG TABLET.EC PO SCH (10:46)
[2021-04-11] MEDS: NICOTINE 21 MG/24 HOURS TOPICAL PATCH TD SCH (10:47)
[2021-04-11] MEDS: NALTREXONE HCL 50 MG TABLET PO SCH (10:48)
[2021-04-11] MEDS: THIAMINE HCL 100 MG TABLET (FP) PO SCH (21:36)
[2021-04-11] MEDS: hydrOXYzine PAMOATE 25 MG CAPSULE (FP) PO PRN (21:36)
[2021-04-11] MEDS: MELATONIN 5 MG TABLETS PO PRN (21:36)
[2021-04-12] MEDS: DOCUSATE SODIUM 100 MG CAPSULE (FP) PO SCH ×3 (06:17→21:51)
[2021-04-12] MEDS: PANTOPRAZOLE 40 MG TABLET PO SCH (10:30)
[2021-04-12] MEDS: PRENATAL VITAMINS W/ FOLIC ACID TABLET (FP) PO SCH (10:30)
[2021-04-12] MEDS: metoPROLOL SUCCINATE 25 MG TAB.SR.24H (FP) PO SCH (10:30)
[2021-04-12] MEDS: NALTREXONE HCL 50 MG TABLET PO SCH (10:30)
[2021-04-12] MEDS: ASPIRIN COATED 81 MG TABLET.EC PO SCH (10:30)
[2021-04-12] MEDS: MIRTAZAPINE 15 MG TABLET (FP) PO SCH (10:30)
[2021-04-12] MEDS: NICOTINE 21 MG/24 HOURS TOPICAL PATCH TD SCH (10:32)
[2021-04-12] MEDS: THIAMINE HCL 100 MG TABLET (FP) PO SCH (21:51)
[2021-04-12] MEDS: MELATONIN 5 MG TABLETS PO PRN (21:51)
[2021-04-12] MEDS: hydrOXYzine PAMOATE 25 MG CAPSULE (FP) PO PRN (21:51)
[2021-04-13] MEDS: DOCUSATE SODIUM 100 MG CAPSULE (FP) PO SCH ×3 (06:08→21:44)
[2021-04-13] MEDS: PRENATAL VITAMINS W/ FOLIC ACID TABLET (FP) PO SCH (10:23)
[2021-04-13] MEDS: hydrOXYzine PAMOATE 25 MG CAPSULE (FP) PO PRN ×2 (10:23→21:44)
[2021-04-13] MEDS: metoPROLOL SUCCINATE 25 MG TAB.SR.24H (FP) PO SCH (10:23)
[2021-04-13] MEDS: ASPIRIN COATED 81 MG TABLET.EC PO SCH (10:23)
[2021-04-13] MEDS: NICOTINE 21 MG/24 HOURS TOPICAL PATCH TD SCH (10:23)
[2021-04-13] MEDS: PANTOPRAZOLE 40 MG TABLET PO SCH (10:23)
[2021-04-13] MEDS: MIRTAZAPINE 15 MG TABLET (FP) PO SCH (10:23)
[2021-04-13] MEDS: NALTREXONE HCL 50 MG TABLET PO SCH (10:24)
[2021-04-13] MEDS ORDERED: MODERNA COVID-19 VACC,MRNA/PF 50 MCG/0.25 ML EACH IM ONE (12:00)
[2021-04-13] MEDS: MELATONIN 5 MG TABLETS PO PRN (21:44)
[2021-04-13] MEDS: THIAMINE HCL 100 MG TABLET (FP) PO SCH (21:44)
[2021-04-14] MEDS: DOCUSATE SODIUM 100 MG CAPSULE (FP) PO SCH ×3 (06:12→21:27)
[2021-04-14] MEDS: PRENATAL VITAMINS W/ FOLIC ACID TABLET (FP) PO SCH (10:02)
[2021-04-14] MEDS: PANTOPRAZOLE 40 MG TABLET PO SCH (10:02)
[2021-04-14] MEDS: ASPIRIN COATED 81 MG TABLET.EC PO SCH (10:02)
[2021-04-14] MEDS: NICOTINE 21 MG/24 HOURS TOPICAL PATCH TD SCH (10:02)
[2021-04-14] MEDS: MIRTAZAPINE 15 MG TABLET (FP) PO SCH (10:02)
[2021-04-14] MEDS: NALTREXONE HCL 50 MG TABLET PO SCH (10:03)
[2021-04-14] MEDS: metoPROLOL SUCCINATE 25 MG TAB.SR.24H (FP) PO SCH (10:06)
[2021-04-14] MEDS: THIAMINE HCL 100 MG TABLET (FP) PO SCH (21:27)
[2021-04-14] MEDS: MELATONIN 5 MG TABLETS PO PRN (21:27)
[2021-04-15] MEDS: DOCUSATE SODIUM 100 MG CAPSULE (FP) PO SCH (06:08)
[2021-04-15 07:58] VITALS: TEMP 96.7
[2021-04-15] MEDS: MIRTAZAPINE 15 MG TABLET (FP) PO SCH (09:59)
[2021-04-15] MEDS: PANTOPRAZOLE 40 MG TABLET PO SCH (09:59)
[2021-04-15] MEDS: metoPROLOL SUCCINATE 25 MG TAB.SR.24H (FP) PO SCH (10:00)
[2021-04-15] MEDS: ASPIRIN COATED 81 MG TABLET.EC PO SCH (10:00)
[2021-04-15] MEDS: PRENATAL VITAMINS W/ FOLIC ACID TABLET (FP) PO SCH (10:00)
[2021-04-15] MEDS: NICOTINE 21 MG/24 HOURS TOPICAL PATCH TD SCH (10:00)
[2021-04-15 10:02] VITALS: BP 115/79; PULSE 90
[2021-04-15] MEDS: NALTREXONE HCL 50 MG TABLET PO SCH (11:17)
== END 2021-04-15 10:15 | disposition home or self-care (01) | DRG 772 ==
LOC: YASAS 18:35 → Y3W 18:36 → Y5N 04-01 22:02
PROVIDERS: ADMIT Allergy & Immunology; ATTEND Allergy & Immunology
PROC: HZ42ZZZ Group Counseling for Substance Abuse Treatment, Cognitive-Behavioral (ICD-10-PCS; principal; 2021-03-31)
DX: F10.20 Alcohol dependence, uncomplicated (principal); F10.24 Alcohol dependence with alcohol-induced mood disorder; F17.210 Nicotine dependence, cigarettes, uncomplicated; F10.282 Alcohol dependence with alcohol-induced sleep disorder; F10.280 Alcohol dependence with alcohol-induced anxiety disorder; F41.0 Panic disorder [episodic paroxysmal anxiety]; I10 Essential (primary) hypertension; K21.9 Gastro-esophageal reflux disease without esophagitis; K44.9 Diaphragmatic hernia without obstruction or gangrene; B19.10 Unspecified viral hepatitis B without hepatic coma; Z87.19 Personal history of other diseases of the digestive system; Z86.59 Personal history of other mental and behavioral disorders; Z59.01 Sheltered homelessness; Z56.0 Unemployment, unspecified
CPT/HCPCS: 0013A; 83036; 91301; C9803; U0003; U0005

== ENCOUNTER 2021-07-03 15:37 | Inpatient (IN) | payer OTHER ==
[2021-07-03 18:32] VITALS: BMI 26.3
[2021-07-03] MEDS ORDERED: DICYCLOMINE HCL 10 MG CAPSULE PO PRN (20:25)
[2021-07-03] MEDS ORDERED: chlordiazePOXIDE HCL 25 MG CAPSULE PO PRN (20:25)
[2021-07-03] MEDS ORDERED: BISMUTH SUBSALICYLATE 524 MG/30 ML PO PRN (20:25)
[2021-07-03] MEDS ORDERED: MAGNESIUM HYDROX 2400MG/30ML ORAL SUSPENSION 30 ML CUP PO PRN (20:25)
[2021-07-03] MEDS ORDERED: MAG HYDROX/AL HYDROX/SIMETH 30 ML UNIT-DOSE CUP PO PRN (20:25)
[2021-07-03] MEDS ORDERED: ACETAMINOPHEN 325 MG TABLET (FP) PO PRN ×2 (20:25)
[2021-07-03] MEDS ORDERED: IBUPROFEN 400 MG TABLET (FP) PO PRN (20:25)
[2021-07-03] MEDS ORDERED: LOPERAMIDE HCL 2 MG CAPSULE PO PRN (20:25)
[2021-07-03] MEDS ORDERED: BENZOCAINE/MENTHOL (CHLORASEPTIC ) LOZENGE MM PRN (20:25)
[2021-07-03] MEDS ORDERED: NICOTINE POLACRILEX 2 MG GUM BUC PRN (20:25)
[2021-07-03] MEDS ORDERED: ONDANSETRON *ODT* 4 MG TABLET SL PRN (20:25)
[2021-07-03] MEDS ORDERED: MAGNESIUM CITRATE 300 ML BOTTLE PO PRN (20:25)
[2021-07-03] MEDS ORDERED: MELATONIN 5 MG TABLETS PO SCH (22:00)
[2021-07-03] MEDS: chlordiazePOXIDE HCL 25 MG CAPSULE PO SCH (23:50)
[2021-07-03] MEDS: THIAMINE HCL 100 MG TABLET (FP) PO SCH (23:52)
[2021-07-04] MEDS ORDERED: cloNIDine HCL 0.1 MG TABLET PO ONE
[2021-07-04] MEDS: chlordiazePOXIDE HCL 25 MG CAPSULE PO SCH ×4 (07:14→22:17)
[2021-07-04] MEDS: DOCUSATE SODIUM 100 MG CAPSULE (FP) PO SCH ×3 (07:19→22:17)
[2021-07-04] MEDS: NICOTINE 14 MG/24 HOURS TOPICAL PATCH TD SCH (10:37)
[2021-07-04 10:38] LABS: HEMATOCRIT 33.2 % (35.4-49); MCH 31.9 pg (25.7-33.7); MEAN CELL VOLUME 96.6 fl (80-96); MEAN PLT VOLUME 9.3 fl (7.5-11.1); PLATELET COUNT 68 10^3/uL (134-434); RBC 3.44 M/mm3 (4.00-5.60); RDW 16.8 % (11.9-15.9); WHITE BLOOD COUNT 2.9 K/mm3 (4.0-10.0)
[2021-07-04] MEDS: FERROUS SO4 325 MG TABLET (FP) PO SCH ×2 (10:38→22:17)
[2021-07-04] MEDS: PRENATAL VITAMINS W/ FOLIC ACID TABLET (FP) PO SCH (10:38)
[2021-07-04] MEDS: ASPIRIN COATED 81 MG TABLET.EC PO SCH (10:38)
[2021-07-04] MEDS: metoPROLOL SUCCINATE 25 MG TAB.SR.24H (FP) PO SCH (10:38)
[2021-07-04] MEDS: PANTOPRAZOLE 40 MG TABLET PO SCH (10:38)
[2021-07-04 10:42] LABS: CALCIUM 8.8 mg/dL (8.5-10.1)
[2021-07-04 10:43] LABS: ALBUMIN 3.2 g/dl (3.4-5.0); BLOOD UREA NITROGEN 8.8 mg/dL (7-18)
[2021-07-04 10:48] LABS: BILIRUBIN,TOTAL 1.1 mg/dL (0.2-1)
[2021-07-04 10:51] LABS: CREATININE 0.6 mg/dL (0.55-1.3)
[2021-07-04] MEDS ORDERED: POTASSIUM CHLORIDE ORAL LIQUID 20 MEQ/15 ML PO ONE ×2 (12:15→18:00)
[2021-07-04] MEDS: THIAMINE HCL 100 MG TABLET (FP) PO SCH (22:17)
[2021-07-04] MEDS: METHOCARBAMOL 500 MG TABLET PO PRN (22:17)
[2021-07-04] MEDS: MIRTAZAPINE 15 MG TABLET (FP) PO SCH (22:17)
[2021-07-05] MEDS: DOCUSATE SODIUM 100 MG CAPSULE (FP) PO SCH ×3 (05:52→22:17)
[2021-07-05] MEDS: chlordiazePOXIDE HCL 25 MG CAPSULE PO SCH ×4 (05:53→22:18)
[2021-07-05] MEDS: PANTOPRAZOLE 40 MG TABLET PO SCH (09:04)
[2021-07-05] MEDS: FERROUS SO4 325 MG TABLET (FP) PO SCH ×2 (09:04→22:17)
[2021-07-05] MEDS: metoPROLOL SUCCINATE 25 MG TAB.SR.24H (FP) PO SCH (09:04)
[2021-07-05] MEDS: ASPIRIN COATED 81 MG TABLET.EC PO SCH (09:04)
[2021-07-05] MEDS: PRENATAL VITAMINS W/ FOLIC ACID TABLET (FP) PO SCH (09:05)
[2021-07-05] MEDS: NICOTINE 14 MG/24 HOURS TOPICAL PATCH TD SCH (10:33)
[2021-07-05] MEDS ORDERED: amLODIPine BESYLATE 5 MG TABLET (FP) PO ONE (15:26)
[2021-07-05] MEDS: THIAMINE HCL 100 MG TABLET (FP) PO SCH (22:17)
[2021-07-05] MEDS: MIRTAZAPINE 15 MG TABLET (FP) PO SCH (22:17)
[2021-07-05] MEDS: METHOCARBAMOL 500 MG TABLET PO PRN (22:18)
[2021-07-05] MEDS: MELATONIN 5 MG TABLETS PO PRN (22:50)
[2021-07-06] MEDS ORDERED: chlordiazePOXIDE HCL 10 MG CAPSULE PO PRN
[2021-07-06] MEDS: chlordiazePOXIDE HCL 10 MG CAPSULE PO SCH ×5 (06:43→22:26)
[2021-07-06] MEDS: DOCUSATE SODIUM 100 MG CAPSULE (FP) PO SCH ×4 (06:44→22:27)
[2021-07-06] MEDS: PANTOPRAZOLE 40 MG TABLET PO SCH (10:31)
[2021-07-06] MEDS: metoPROLOL SUCCINATE 25 MG TAB.SR.24H (FP) PO SCH (10:31)
[2021-07-06] MEDS: PRENATAL VITAMINS W/ FOLIC ACID TABLET (FP) PO SCH (10:31)
[2021-07-06] MEDS: NICOTINE 14 MG/24 HOURS TOPICAL PATCH TD SCH (10:31)
[2021-07-06] MEDS: FERROUS SO4 325 MG TABLET (FP) PO SCH ×2 (10:32→22:27)
[2021-07-06] MEDS: ASPIRIN COATED 81 MG TABLET.EC PO SCH (10:32)
[2021-07-06 11:16] LABS: BASO % 0.8 % (0-2.0); EOS % 1.6 % (0-4.5); HEMATOCRIT 34.2 % (35.4-49); HEMOGLOBIN 11.2 GM/dL (11.7-16.9); LYMPH % 35.9 % (8-40); MCH 32.1 pg (25.7-33.7); MCHC 32.9 g/dl (32.0-35.9); MEAN CELL VOLUME 97.7 fl (80-96); MEAN PLT VOLUME 9.7 fl (7.5-11.1); MONO % 9.6 % (3.8-10.2); NEUT % 52.1 % (42.8-82.8); PLATELET COUNT 76 10^3/uL (134-434); RDW 17.5 % (11.9-15.9); WHITE BLOOD COUNT 3.2 K/mm3 (4.0-10.0)
[2021-07-06 12:07] LABS: ALBUMIN 3.1 g/dl (3.4-5.0)
[2021-07-06 12:09] LABS: BILIRUBIN,DIRECT 0.3 mg/dL (0.0-0.2)
[2021-07-06 12:11] LABS: BILIRUBIN,TOTAL 0.7 mg/dL (0.2-1); TOT PROT 5.9 g/dl (6.4-8.2)
[2021-07-06] MEDS: MIRTAZAPINE 15 MG TABLET (FP) PO SCH (22:26)
[2021-07-06] MEDS: MELATONIN 5 MG TABLETS PO PRN (22:27)
[2021-07-06] MEDS: THIAMINE HCL 100 MG TABLET (FP) PO SCH (22:27)
[2021-07-07] MEDS: chlordiazePOXIDE HCL 10 MG CAPSULE PO SCH ×2 (06:03→18:26)
[2021-07-07] MEDS: DOCUSATE SODIUM 100 MG CAPSULE (FP) PO SCH ×3 (06:04→22:14)
[2021-07-07] MEDS: ASPIRIN COATED 81 MG TABLET.EC PO SCH (10:14)
[2021-07-07] MEDS: PRENATAL VITAMINS W/ FOLIC ACID TABLET (FP) PO SCH (10:14)
[2021-07-07] MEDS: metoPROLOL SUCCINATE 25 MG TAB.SR.24H (FP) PO SCH (10:14)
[2021-07-07] MEDS: PANTOPRAZOLE 40 MG TABLET PO SCH (10:15)
[2021-07-07] MEDS: NICOTINE 14 MG/24 HOURS TOPICAL PATCH TD SCH (10:15)
[2021-07-07] MEDS: FERROUS SO4 325 MG TABLET (FP) PO SCH ×2 (10:15→22:14)
[2021-07-07] MEDS: MIRTAZAPINE 15 MG TABLET (FP) PO SCH (22:14)
[2021-07-07] MEDS: THIAMINE HCL 100 MG TABLET (FP) PO SCH (22:14)
[2021-07-07] MEDS: MELATONIN 5 MG TABLETS PO PRN (22:14)
[2021-07-08] MEDS ORDERED: chlordiazePOXIDE HCL 10 MG CAPSULE PO ONE (05:00)
[2021-07-08] MEDS: DOCUSATE SODIUM 100 MG CAPSULE (FP) PO SCH (06:17)
[2021-07-08 09:13] VITALS: BP 131/89; PULSE 74; TEMP 97.8
[2021-07-08] MEDS: FERROUS SO4 325 MG TABLET (FP) PO SCH (10:32)
[2021-07-08] MEDS: NICOTINE 14 MG/24 HOURS TOPICAL PATCH TD SCH (10:32)
[2021-07-08] MEDS: ASPIRIN COATED 81 MG TABLET.EC PO SCH (10:32)
[2021-07-08] MEDS: metoPROLOL SUCCINATE 25 MG TAB.SR.24H (FP) PO SCH (10:32)
[2021-07-08] MEDS: PANTOPRAZOLE 40 MG TABLET PO SCH (10:32)
[2021-07-08] MEDS: PRENATAL VITAMINS W/ FOLIC ACID TABLET (FP) PO SCH (10:32)
== END 2021-07-08 12:20 | disposition other institution (70) | DRG 775 ==
LOC: YASAS 15:37 → Y3N 21:36
PROVIDERS: ADMIT Allergy & Immunology; ATTEND Allergy & Immunology
PROC: HZ2ZZZZ Detoxification Services for Substance Abuse Treatment (ICD-10-PCS; principal; 2021-07-03)
DX: F10.230 Alcohol dependence with withdrawal, uncomplicated (principal); F10.24 Alcohol dependence with alcohol-induced mood disorder; F10.282 Alcohol dependence with alcohol-induced sleep disorder; F10.280 Alcohol dependence with alcohol-induced anxiety disorder; F17.210 Nicotine dependence, cigarettes, uncomplicated; F41.9 Anxiety disorder, unspecified; F32.A Depression, unspecified; I10 Essential (primary) hypertension; D64.9 Anemia, unspecified; K21.9 Gastro-esophageal reflux disease without esophagitis; R94.5 Abnormal results of liver function studies; D68.1 Hereditary factor XI deficiency; E87.6 Hypokalemia; Z86.11 Personal history of tuberculosis; Z86.19 Personal history of other infectious and parasitic diseases; Z59.01 Sheltered homelessness
CPT/HCPCS: 36415; 80053; 80076; 84132; 85025; 85027; 86780; 93005; 93010; C9803-CS; J0735; U0003; U0005

== ENCOUNTER 2021-07-08 12:33 | Inpatient (IN) | payer OTHER ==
[2021-07-08] MEDS ORDERED: MAGNESIUM HYDROX 2400MG/30ML ORAL SUSPENSION 30 ML CUP PO PRN (12:56)
[2021-07-08] MEDS ORDERED: guaiFENesin 200 MG/10 ML 10 ML UNIT-DOSE CUPS PO PRN (12:56)
[2021-07-08] MEDS ORDERED: BENZOCAINE/MENTHOL (CHLORASEPTIC ) LOZENGE MM PRN (12:56)
[2021-07-08] MEDS ORDERED: LOPERAMIDE HCL 2 MG CAPSULE PO PRN (12:56)
[2021-07-08] MEDS ORDERED: IBUPROFEN 400 MG TABLET (FP) PO PRN (12:56)
[2021-07-08] MEDS ORDERED: NICOTINE 10 MG CARTRIDGE (INHALER) IH PRN (12:56)
[2021-07-08] MEDS ORDERED: P-EPHED 60MG/TRIPROLIDI 2.5MG TABLET PO PRN (12:56)
[2021-07-08] MEDS ORDERED: MAGNESIUM CITRATE 300 ML BOTTLE PO PRN (12:56)
[2021-07-08] MEDS ORDERED: ACETAMINOPHEN 325 MG TABLET (FP) PO PRN (12:56)
[2021-07-08] MEDS ORDERED: MAG HYDROX/AL HYDROX/SIMETH 30 ML UNIT-DOSE CUP PO PRN (12:56)
[2021-07-08] MEDS ORDERED: NICOTINE POLACRILEX 2 MG GUM BUC PRN (12:59)
[2021-07-08] MEDS ORDERED: hydrOXYzine PAMOATE 25 MG CAPSULE (FP) PO PRN (13:20)
[2021-07-08] MEDS ORDERED: hydrOXYzine PAMOATE 25 MG CAPSULE (FP) PO SCH (14:00)
[2021-07-08] MEDS: METHOCARBAMOL 500 MG TABLET PO SCH ×3 (14:04→21:43)
[2021-07-08] MEDS: DOCUSATE SODIUM 100 MG CAPSULE (FP) PO SCH ×2 (14:04→21:43)
[2021-07-08] MEDS: FERROUS SO4 325 MG TABLET (FP) PO SCH (21:45)
[2021-07-08] MEDS: MELATONIN 5 MG TABLETS PO SCH (21:45)
[2021-07-08] MEDS: THIAMINE HCL 100 MG TABLET (FP) PO SCH (21:45)
[2021-07-08] MEDS: MIRTAZAPINE 15 MG TABLET (FP) PO SCH (21:45)
[2021-07-09] MEDS: DOCUSATE SODIUM 100 MG CAPSULE (FP) PO SCH ×3 (07:11→21:24)
[2021-07-09] MEDS ORDERED: NICOTINE 7 MG/24 HOURS TOPICAL PATCH TD SCH (10:00)
[2021-07-09] MEDS: FERROUS SO4 325 MG TABLET (FP) PO SCH ×2 (10:40→21:24)
[2021-07-09] MEDS: PRENATAL VITAMINS W/ FOLIC ACID TABLET (FP) PO SCH (10:40)
[2021-07-09] MEDS: ASPIRIN COATED 81 MG TABLET.EC PO SCH (10:40)
[2021-07-09] MEDS: METHOCARBAMOL 500 MG TABLET PO SCH ×4 (10:40→21:24)
[2021-07-09] MEDS: amLODIPine BESYLATE 5 MG TABLET (FP) PO SCH (10:40)
[2021-07-09] MEDS: metoPROLOL SUCCINATE 25 MG TAB.SR.24H (FP) PO SCH (10:41)
[2021-07-09] MEDS: PANTOPRAZOLE 40 MG TABLET PO SCH (10:41)
[2021-07-09] MEDS: NICOTINE 14 MG/24 HOURS TOPICAL PATCH TD SCH (10:42)
[2021-07-09] MEDS: THIAMINE HCL 100 MG TABLET (FP) PO SCH (21:24)
[2021-07-09] MEDS: MIRTAZAPINE 15 MG TABLET (FP) PO SCH (21:24)
[2021-07-09] MEDS: MELATONIN 5 MG TABLETS PO SCH (21:24)
[2021-07-10] MEDS: DOCUSATE SODIUM 100 MG CAPSULE (FP) PO SCH ×3 (06:39→21:33)
[2021-07-10] MEDS: PANTOPRAZOLE 40 MG TABLET PO SCH (10:46)
[2021-07-10] MEDS: amLODIPine BESYLATE 5 MG TABLET (FP) PO SCH (10:46)
[2021-07-10] MEDS: FERROUS SO4 325 MG TABLET (FP) PO SCH ×2 (10:46→21:33)
[2021-07-10] MEDS: metoPROLOL SUCCINATE 25 MG TAB.SR.24H (FP) PO SCH (10:46)
[2021-07-10] MEDS: PRENATAL VITAMINS W/ FOLIC ACID TABLET (FP) PO SCH (10:47)
[2021-07-10] MEDS: METHOCARBAMOL 500 MG TABLET PO SCH ×4 (10:47→21:33)
[2021-07-10] MEDS: ASPIRIN COATED 81 MG TABLET.EC PO SCH (10:47)
[2021-07-10] MEDS: NICOTINE 14 MG/24 HOURS TOPICAL PATCH TD SCH (10:47)
[2021-07-10] MEDS: MIRTAZAPINE 15 MG TABLET (FP) PO SCH (21:33)
[2021-07-10] MEDS: THIAMINE HCL 100 MG TABLET (FP) PO SCH (21:34)
[2021-07-10] MEDS: MELATONIN 5 MG TABLETS PO SCH (21:34)
[2021-07-11] MEDS: DOCUSATE SODIUM 100 MG CAPSULE (FP) PO SCH ×3 (07:27→21:46)
[2021-07-11] MEDS: PANTOPRAZOLE 40 MG TABLET PO SCH (10:30)
[2021-07-11] MEDS: NICOTINE 14 MG/24 HOURS TOPICAL PATCH TD SCH (10:30)
[2021-07-11] MEDS: PRENATAL VITAMINS W/ FOLIC ACID TABLET (FP) PO SCH (10:30)
[2021-07-11] MEDS: METHOCARBAMOL 500 MG TABLET PO SCH ×4 (10:31→21:46)
[2021-07-11] MEDS: FERROUS SO4 325 MG TABLET (FP) PO SCH ×2 (10:31→21:46)
[2021-07-11] MEDS: ASPIRIN COATED 81 MG TABLET.EC PO SCH (10:31)
[2021-07-11] MEDS: metoPROLOL SUCCINATE 25 MG TAB.SR.24H (FP) PO SCH (12:38)
[2021-07-11] MEDS: amLODIPine BESYLATE 5 MG TABLET (FP) PO SCH (12:38)
[2021-07-11] MEDS: THIAMINE HCL 100 MG TABLET (FP) PO SCH (21:46)
[2021-07-11] MEDS: MELATONIN 5 MG TABLETS PO SCH (21:46)
[2021-07-11] MEDS: MIRTAZAPINE 15 MG TABLET (FP) PO SCH (21:46)
[2021-07-12] MEDS: DOCUSATE SODIUM 100 MG CAPSULE (FP) PO SCH ×3 (06:20→21:02)
[2021-07-12] MEDS: metoPROLOL SUCCINATE 25 MG TAB.SR.24H (FP) PO SCH (10:09)
[2021-07-12] MEDS: amLODIPine BESYLATE 5 MG TABLET (FP) PO SCH (10:09)
[2021-07-12] MEDS: NICOTINE 14 MG/24 HOURS TOPICAL PATCH TD SCH (10:09)
[2021-07-12] MEDS: METHOCARBAMOL 500 MG TABLET PO SCH ×4 (10:10→21:02)
[2021-07-12] MEDS: ASPIRIN COATED 81 MG TABLET.EC PO SCH (10:10)
[2021-07-12] MEDS: FERROUS SO4 325 MG TABLET (FP) PO SCH ×2 (10:10→21:02)
[2021-07-12] MEDS: PANTOPRAZOLE 40 MG TABLET PO SCH (10:10)
[2021-07-12] MEDS: PRENATAL VITAMINS W/ FOLIC ACID TABLET (FP) PO SCH (10:10)
[2021-07-12] MEDS: MIRTAZAPINE 15 MG TABLET (FP) PO SCH (21:02)
[2021-07-12] MEDS: THIAMINE HCL 100 MG TABLET (FP) PO SCH (21:02)
[2021-07-12] MEDS: MELATONIN 5 MG TABLETS PO SCH (21:02)
[2021-07-13] MEDS: DOCUSATE SODIUM 100 MG CAPSULE (FP) PO SCH ×3 (06:15→21:30)
[2021-07-13] MEDS: PRENATAL VITAMINS W/ FOLIC ACID TABLET (FP) PO SCH (10:41)
[2021-07-13] MEDS: NICOTINE 14 MG/24 HOURS TOPICAL PATCH TD SCH (10:42)
[2021-07-13] MEDS: PANTOPRAZOLE 40 MG TABLET PO SCH (10:42)
[2021-07-13] MEDS: FERROUS SO4 325 MG TABLET (FP) PO SCH ×2 (10:42→21:30)
[2021-07-13] MEDS: amLODIPine BESYLATE 5 MG TABLET (FP) PO SCH (10:42)
[2021-07-13] MEDS: ASPIRIN COATED 81 MG TABLET.EC PO SCH (10:42)
[2021-07-13] MEDS: metoPROLOL SUCCINATE 25 MG TAB.SR.24H (FP) PO SCH (10:42)
[2021-07-13] MEDS: METHOCARBAMOL 500 MG TABLET PO SCH ×4 (10:42→21:30)
[2021-07-13] MEDS ORDERED: NALTREXONE HCL 50 MG TABLET PO SCH (11:30)
[2021-07-13 16:08] LABS: SARS-CoV-2 NAA Not Detected (Not Detected)
[2021-07-13] MEDS: MELATONIN 5 MG TABLETS PO SCH (21:30)
[2021-07-13] MEDS: MIRTAZAPINE 15 MG TABLET (FP) PO SCH (21:30)
[2021-07-13] MEDS: THIAMINE HCL 100 MG TABLET (FP) PO SCH (21:31)
[2021-07-14] MEDS: DOCUSATE SODIUM 100 MG CAPSULE (FP) PO SCH ×3 (06:21→21:02)
[2021-07-14] MEDS: amLODIPine BESYLATE 5 MG TABLET (FP) PO SCH (09:46)
[2021-07-14] MEDS: PANTOPRAZOLE 40 MG TABLET PO SCH (09:46)
[2021-07-14] MEDS: PRENATAL VITAMINS W/ FOLIC ACID TABLET (FP) PO SCH (09:46)
[2021-07-14] MEDS: FERROUS SO4 325 MG TABLET (FP) PO SCH ×2 (09:47→21:02)
[2021-07-14] MEDS: ASPIRIN COATED 81 MG TABLET.EC PO SCH (09:47)
[2021-07-14] MEDS: METHOCARBAMOL 500 MG TABLET PO SCH ×4 (09:47→21:02)
[2021-07-14] MEDS: metoPROLOL SUCCINATE 25 MG TAB.SR.24H (FP) PO SCH (09:47)
[2021-07-14] MEDS ORDERED: NALTREXONE HCL 50 MG TABLET PO SCH (10:30)
[2021-07-14] MEDS: NALTREXONE HCL 50 MG TABLET PO SCH (12:28)
[2021-07-14] MEDS: NICOTINE 14 MG/24 HOURS TOPICAL PATCH TD SCH (12:28)
[2021-07-14] MEDS: THIAMINE HCL 100 MG TABLET (FP) PO SCH (21:02)
[2021-07-14] MEDS: MELATONIN 5 MG TABLETS PO SCH (21:02)
[2021-07-14] MEDS: MIRTAZAPINE 15 MG TABLET (FP) PO SCH (21:02)
[2021-07-15] MEDS: DOCUSATE SODIUM 100 MG CAPSULE (FP) PO SCH ×3 (07:33→21:18)
[2021-07-15] MEDS: PANTOPRAZOLE 40 MG TABLET PO SCH (10:25)
[2021-07-15] MEDS: PRENATAL VITAMINS W/ FOLIC ACID TABLET (FP) PO SCH (10:25)
[2021-07-15] MEDS: metoPROLOL SUCCINATE 25 MG TAB.SR.24H (FP) PO SCH (10:25)
[2021-07-15] MEDS: FERROUS SO4 325 MG TABLET (FP) PO SCH ×2 (10:26→21:18)
[2021-07-15] MEDS: NICOTINE 14 MG/24 HOURS TOPICAL PATCH TD SCH (10:26)
[2021-07-15] MEDS: METHOCARBAMOL 500 MG TABLET PO SCH ×4 (10:26→21:18)
[2021-07-15] MEDS: ASPIRIN COATED 81 MG TABLET.EC PO SCH (10:26)
[2021-07-15] MEDS: NALTREXONE HCL 50 MG TABLET PO SCH (12:13)
[2021-07-15] MEDS: amLODIPine BESYLATE 5 MG TABLET (FP) PO SCH (12:14)
[2021-07-15] MEDS: MELATONIN 5 MG TABLETS PO SCH (21:18)
[2021-07-15] MEDS: THIAMINE HCL 100 MG TABLET (FP) PO SCH (21:18)
[2021-07-15] MEDS: MIRTAZAPINE 15 MG TABLET (FP) PO SCH (21:18)
[2021-07-16] MEDS: DOCUSATE SODIUM 100 MG CAPSULE (FP) PO SCH ×3 (06:39→21:04)
[2021-07-16] MEDS: NICOTINE 14 MG/24 HOURS TOPICAL PATCH TD SCH (09:45)
[2021-07-16] MEDS: PRENATAL VITAMINS W/ FOLIC ACID TABLET (FP) PO SCH (09:45)
[2021-07-16] MEDS: PANTOPRAZOLE 40 MG TABLET PO SCH (09:45)
[2021-07-16] MEDS: FERROUS SO4 325 MG TABLET (FP) PO SCH ×2 (09:45→21:04)
[2021-07-16] MEDS: ASPIRIN COATED 81 MG TABLET.EC PO SCH (09:45)
[2021-07-16] MEDS: amLODIPine BESYLATE 5 MG TABLET (FP) PO SCH (09:45)
[2021-07-16] MEDS: METHOCARBAMOL 500 MG TABLET PO SCH ×4 (09:46→21:04)
[2021-07-16] MEDS: metoPROLOL SUCCINATE 25 MG TAB.SR.24H (FP) PO SCH (09:46)
[2021-07-16] MEDS: NALTREXONE HCL 50 MG TABLET PO SCH (11:58)
[2021-07-16] MEDS: THIAMINE HCL 100 MG TABLET (FP) PO SCH (21:04)
[2021-07-16] MEDS: MIRTAZAPINE 15 MG TABLET (FP) PO SCH (21:04)
[2021-07-16] MEDS: MELATONIN 5 MG TABLETS PO SCH (21:04)
[2021-07-17] MEDS: DOCUSATE SODIUM 100 MG CAPSULE (FP) PO SCH ×3 (06:53→21:24)
[2021-07-17] MEDS: METHOCARBAMOL 500 MG TABLET PO SCH ×4 (10:44→21:24)
[2021-07-17] MEDS: metoPROLOL SUCCINATE 25 MG TAB.SR.24H (FP) PO SCH (10:44)
[2021-07-17] MEDS: PRENATAL VITAMINS W/ FOLIC ACID TABLET (FP) PO SCH (10:44)
[2021-07-17] MEDS: ASPIRIN COATED 81 MG TABLET.EC PO SCH (10:44)
[2021-07-17] MEDS: amLODIPine BESYLATE 5 MG TABLET (FP) PO SCH (10:44)
[2021-07-17] MEDS: FERROUS SO4 325 MG TABLET (FP) PO SCH ×2 (10:44→21:24)
[2021-07-17] MEDS: PANTOPRAZOLE 40 MG TABLET PO SCH (10:44)
[2021-07-17] MEDS: NICOTINE 14 MG/24 HOURS TOPICAL PATCH TD SCH (10:45)
[2021-07-17] MEDS: NALTREXONE HCL 50 MG TABLET PO SCH (12:13)
[2021-07-17] MEDS: MELATONIN 5 MG TABLETS PO SCH (21:24)
[2021-07-17] MEDS: MIRTAZAPINE 15 MG TABLET (FP) PO SCH (21:24)
[2021-07-17] MEDS: THIAMINE HCL 100 MG TABLET (FP) PO SCH (21:24)
[2021-07-18] MEDS: DOCUSATE SODIUM 100 MG CAPSULE (FP) PO SCH ×3 (06:44→21:02)
[2021-07-18] MEDS: PRENATAL VITAMINS W/ FOLIC ACID TABLET (FP) PO SCH (10:05)
[2021-07-18] MEDS: metoPROLOL SUCCINATE 25 MG TAB.SR.24H (FP) PO SCH (10:05)
[2021-07-18] MEDS: PANTOPRAZOLE 40 MG TABLET PO SCH (10:05)
[2021-07-18] MEDS: METHOCARBAMOL 500 MG TABLET PO SCH ×4 (10:05→21:02)
[2021-07-18] MEDS: amLODIPine BESYLATE 5 MG TABLET (FP) PO SCH (10:05)
[2021-07-18] MEDS: FERROUS SO4 325 MG TABLET (FP) PO SCH ×2 (10:05→21:02)
[2021-07-18] MEDS: ASPIRIN COATED 81 MG TABLET.EC PO SCH (10:05)
[2021-07-18] MEDS: NICOTINE 14 MG/24 HOURS TOPICAL PATCH TD SCH (10:06)
[2021-07-18] MEDS: NALTREXONE HCL 50 MG TABLET PO SCH (14:28)
[2021-07-18] MEDS: MELATONIN 5 MG TABLETS PO SCH (21:02)
[2021-07-18] MEDS: MIRTAZAPINE 15 MG TABLET (FP) PO SCH (21:02)
[2021-07-18] MEDS: THIAMINE HCL 100 MG TABLET (FP) PO SCH (21:02)
[2021-07-19] MEDS: DOCUSATE SODIUM 100 MG CAPSULE (FP) PO SCH ×3 (08:38→21:05)
[2021-07-19] MEDS: METHOCARBAMOL 500 MG TABLET PO SCH ×4 (10:40→21:04)
[2021-07-19] MEDS: PANTOPRAZOLE 40 MG TABLET PO SCH (10:40)
[2021-07-19] MEDS: PRENATAL VITAMINS W/ FOLIC ACID TABLET (FP) PO SCH (10:40)
[2021-07-19] MEDS: FERROUS SO4 325 MG TABLET (FP) PO SCH ×2 (10:40→21:05)
[2021-07-19] MEDS: metoPROLOL SUCCINATE 25 MG TAB.SR.24H (FP) PO SCH (10:40)
[2021-07-19] MEDS: amLODIPine BESYLATE 5 MG TABLET (FP) PO SCH (10:40)
[2021-07-19] MEDS: ASPIRIN COATED 81 MG TABLET.EC PO SCH (10:40)
[2021-07-19] MEDS: NICOTINE 14 MG/24 HOURS TOPICAL PATCH TD SCH (10:41)
[2021-07-19] MEDS: NALTREXONE HCL 50 MG TABLET PO SCH (14:14)
[2021-07-19] MEDS: MELATONIN 5 MG TABLETS PO SCH (21:05)
[2021-07-19] MEDS: MIRTAZAPINE 15 MG TABLET (FP) PO SCH (21:05)
[2021-07-19] MEDS: THIAMINE HCL 100 MG TABLET (FP) PO SCH (21:05)
[2021-07-20] MEDS: DOCUSATE SODIUM 100 MG CAPSULE (FP) PO SCH ×3 (07:12→21:22)
[2021-07-20] MEDS: metoPROLOL SUCCINATE 25 MG TAB.SR.24H (FP) PO SCH (09:52)
[2021-07-20] MEDS: amLODIPine BESYLATE 5 MG TABLET (FP) PO SCH (09:52)
[2021-07-20] MEDS: PANTOPRAZOLE 40 MG TABLET PO SCH (09:52)
[2021-07-20] MEDS: METHOCARBAMOL 500 MG TABLET PO SCH ×4 (09:52→21:22)
[2021-07-20] MEDS: FERROUS SO4 325 MG TABLET (FP) PO SCH ×2 (09:52→21:23)
[2021-07-20] MEDS: PRENATAL VITAMINS W/ FOLIC ACID TABLET (FP) PO SCH (09:52)
[2021-07-20] MEDS: NICOTINE 14 MG/24 HOURS TOPICAL PATCH TD SCH (09:53)
[2021-07-20] MEDS: ASPIRIN COATED 81 MG TABLET.EC PO SCH (09:53)
[2021-07-20] MEDS: NALTREXONE HCL 50 MG TABLET PO SCH (14:20)
[2021-07-20] MEDS: MIRTAZAPINE 15 MG TABLET (FP) PO SCH (21:22)
[2021-07-20] MEDS: THIAMINE HCL 100 MG TABLET (FP) PO SCH (21:23)
[2021-07-20] MEDS: MELATONIN 5 MG TABLETS PO SCH (21:23)
[2021-07-21] MEDS: DOCUSATE SODIUM 100 MG CAPSULE (FP) PO SCH ×3 (06:44→21:47)
[2021-07-21] MEDS: amLODIPine BESYLATE 5 MG TABLET (FP) PO SCH (10:27)
[2021-07-21] MEDS: PANTOPRAZOLE 40 MG TABLET PO SCH (10:27)
[2021-07-21] MEDS: ASPIRIN COATED 81 MG TABLET.EC PO SCH (10:27)
[2021-07-21] MEDS: metoPROLOL SUCCINATE 25 MG TAB.SR.24H (FP) PO SCH (10:27)
[2021-07-21] MEDS: NICOTINE 14 MG/24 HOURS TOPICAL PATCH TD SCH (10:28)
[2021-07-21] MEDS: FERROUS SO4 325 MG TABLET (FP) PO SCH ×2 (10:28→21:47)
[2021-07-21] MEDS: METHOCARBAMOL 500 MG TABLET PO SCH ×4 (10:28→21:47)
[2021-07-21] MEDS: PRENATAL VITAMINS W/ FOLIC ACID TABLET (FP) PO SCH (10:28)
[2021-07-21] MEDS: NALTREXONE HCL 50 MG TABLET PO SCH (13:48)
[2021-07-21] MEDS: THIAMINE HCL 100 MG TABLET (FP) PO SCH (21:47)
[2021-07-21] MEDS: MIRTAZAPINE 15 MG TABLET (FP) PO SCH (21:47)
[2021-07-21] MEDS: MELATONIN 5 MG TABLETS PO SCH (21:47)
[2021-07-22] MEDS: DOCUSATE SODIUM 100 MG CAPSULE (FP) PO SCH ×3 (06:35→21:05)
[2021-07-22] MEDS: ASPIRIN COATED 81 MG TABLET.EC PO SCH (10:30)
[2021-07-22] MEDS: PANTOPRAZOLE 40 MG TABLET PO SCH (10:30)
[2021-07-22] MEDS: FERROUS SO4 325 MG TABLET (FP) PO SCH ×2 (10:30→21:05)
[2021-07-22] MEDS: metoPROLOL SUCCINATE 25 MG TAB.SR.24H (FP) PO SCH (10:30)
[2021-07-22] MEDS: PRENATAL VITAMINS W/ FOLIC ACID TABLET (FP) PO SCH (10:30)
[2021-07-22] MEDS: METHOCARBAMOL 500 MG TABLET PO SCH ×4 (10:30→21:26)
[2021-07-22] MEDS: amLODIPine BESYLATE 5 MG TABLET (FP) PO SCH (10:30)
[2021-07-22] MEDS: NICOTINE 14 MG/24 HOURS TOPICAL PATCH TD SCH (10:31)
[2021-07-22] MEDS: NALTREXONE HCL 50 MG TABLET PO SCH (14:03)
[2021-07-22] MEDS: THIAMINE HCL 100 MG TABLET (FP) PO SCH (21:05)
[2021-07-22] MEDS: MIRTAZAPINE 15 MG TABLET (FP) PO SCH (21:05)
[2021-07-22] MEDS: MELATONIN 5 MG TABLETS PO SCH (21:06)
[2021-07-23 07:07] VITALS: BP 156/99; PULSE 93; TEMP 97.8
[2021-07-23] MEDS: DOCUSATE SODIUM 100 MG CAPSULE (FP) PO SCH (07:11)
[2021-07-23] MEDS: NICOTINE 14 MG/24 HOURS TOPICAL PATCH TD SCH (08:44)
[2021-07-23] MEDS: amLODIPine BESYLATE 5 MG TABLET (FP) PO SCH (08:45)
[2021-07-23] MEDS: PANTOPRAZOLE 40 MG TABLET PO SCH (08:45)
[2021-07-23] MEDS: PRENATAL VITAMINS W/ FOLIC ACID TABLET (FP) PO SCH (08:45)
[2021-07-23] MEDS: metoPROLOL SUCCINATE 25 MG TAB.SR.24H (FP) PO SCH (08:45)
[2021-07-23] MEDS: ASPIRIN COATED 81 MG TABLET.EC PO SCH (08:45)
[2021-07-23] MEDS: METHOCARBAMOL 500 MG TABLET PO SCH (08:45)
[2021-07-23] MEDS: FERROUS SO4 325 MG TABLET (FP) PO SCH (08:46)
== END 2021-07-23 08:59 | disposition home or self-care (01) | DRG 772 ==
LOC: YASAS 12:33 → Y3W 12:36
PROVIDERS: ADMIT Allergy & Immunology; ATTEND Psychiatry & Neurology Pain Medicine
PROC: HZ42ZZZ Group Counseling for Substance Abuse Treatment, Cognitive-Behavioral (ICD-10-PCS; principal; 2021-07-08)
DX: F10.20 Alcohol dependence, uncomplicated (principal); F41.9 Anxiety disorder, unspecified; F32.A Depression, unspecified; I10 Essential (primary) hypertension; K21.9 Gastro-esophageal reflux disease without esophagitis; B15.9 Hepatitis A without hepatic coma; B18.1 Chronic viral hepatitis B without delta-agent; B18.8 Other chronic viral hepatitis; R79.89 Other specified abnormal findings of blood chemistry; Z87.19 Personal history of other diseases of the digestive system
CPT/HCPCS: C9803-CS; U0003; U0005

== ENCOUNTER 2022-05-01 11:40 | Inpatient (IN) | payer OTHER ==
[2022-05-01 12:34] VITALS: BMI 28.5
[2022-05-01] MEDS ORDERED: NALOXONE HCL (KLOXXADO) 8 MG SPRAY NS PRN (13:17)
[2022-05-01] MEDS ORDERED: LORazepam 1 MG TABLET PO PRN (13:17)
[2022-05-01] MEDS ORDERED: LOPERAMIDE HCL 2 MG CAPSULE PO PRN (13:17)
[2022-05-01] MEDS ORDERED: IBUPROFEN 400 MG TABLET (FP) PO PRN (13:17)
[2022-05-01] MEDS ORDERED: POLYETHYLENE GLYCOL (HEALTHYLAX) 3350 17 GM PACKET PO PRN (13:17)
[2022-05-01] MEDS ORDERED: MAG HYDROX/AL HYDROX/SIMETH 30 ML UNIT-DOSE CUP PO PRN (13:17)
[2022-05-01] MEDS ORDERED: BISMUTH SUBSALICYLATE 524 MG/30 ML PO PRN (13:17)
[2022-05-01] MEDS ORDERED: hydrOXYzine PAMOATE 25 MG CAPSULE (FP) PO PRN (13:17)
[2022-05-01] MEDS ORDERED: ONDANSETRON *ODT* 4 MG TABLET SL PRN (13:17)
[2022-05-01] MEDS ORDERED: BENZOCAINE/MENTHOL (CHLORASEPTIC ) LOZENGE MM PRN (13:17)
[2022-05-01] MEDS ORDERED: DICYCLOMINE HCL 10 MG CAPSULE PO PRN (13:17)
[2022-05-01] MEDS ORDERED: ACETAMINOPHEN 325 MG TABLET (FP) PO PRN ×2 (13:17)
[2022-05-01] MEDS ORDERED: IBUPROFEN 600 MG TABLET (FP) PO PRN (13:17)
[2022-05-01] MEDS ORDERED: MAGNESIUM HYDROX 2400MG/30ML ORAL SUSPENSION 30 ML CUP PO PRN (13:17)
[2022-05-01] MEDS ORDERED: LORazepam 1 MG TABLET ONE (14:29)
[2022-05-01] MEDS: METHOCARBAMOL 500 MG TABLET PO PRN (15:38)
[2022-05-01] MEDS: metoPROLOL SUCCINATE 25 MG TAB.SR.24H (FP) PO SCH (15:38)
[2022-05-01] MEDS: LORazepam 2 MG TABLET PO SCH ×2 (17:39→22:19)
[2022-05-01] MEDS: MELATONIN 5 MG TABLETS PO SCH (22:19)
[2022-05-01] MEDS: THIAMINE HCL 100 MG TABLET (FP) PO SCH (22:19)
[2022-05-02] MEDS: LORazepam 2 MG TABLET PO SCH ×4 (05:19→22:01)
[2022-05-02 09:06] VITALS: RESP 18
[2022-05-02] MEDS ORDERED: ASPIRIN COATED 81 MG TABLET.EC PO SCH (10:00)
[2022-05-02] MEDS ORDERED: PRENATAL VITAMINS W/ FOLIC ACID TABLET (FP) PO SCH (10:00)
[2022-05-02] MEDS ORDERED: PANTOPRAZOLE 40 MG TABLET PO SCH (10:00)
[2022-05-02] MEDS: metoPROLOL SUCCINATE 25 MG TAB.SR.24H (FP) PO SCH (10:04)
[2022-05-02] MEDS ORDERED: NICOTINE 21 MG/24 HOURS TOPICAL PATCH TD SCH (12:30)
[2022-05-02] MEDS: METHOCARBAMOL 500 MG TABLET PO PRN ×2 (17:31→23:47)
[2022-05-02] MEDS: MELATONIN 5 MG TABLETS PO SCH (22:00)
[2022-05-02] MEDS ORDERED: MIRTAZAPINE 15 MG TABLET (FP) PO SCH (22:00)
[2022-05-02] MEDS: THIAMINE HCL 100 MG TABLET (FP) PO SCH (22:00)
[2022-05-03 00:43] VITALS: BP 165/111; PULSE 100; TEMP 97.3
[2022-05-03] MEDS ORDERED: cloNIDine HCL 0.1 MG TABLET PO ONE (00:43)
[2022-05-03] MEDS ORDERED: LORazepam 1 MG TABLET PO SCH (05:00)
[2022-05-04] MEDS ORDERED: LORazepam 0.5 MG TABLET PO PRN
[2022-05-04] MEDS ORDERED: LORazepam 0.5 MG TABLET PO SCH (05:00)
[2022-05-05] MEDS ORDERED: LORazepam 0.5 MG TABLET PO ONE (05:00)
== END 2022-05-03 00:57 | disposition left against medical advice (07) | DRG 770 ==
LOC: YASAS 11:40 → Y3N 13:24
PROVIDERS: ADMIT Allergy & Immunology; ATTEND Surgery
PROC: HZ2ZZZZ Detoxification Services for Substance Abuse Treatment (ICD-10-PCS; principal; 2022-05-01)
DX: F10.230 Alcohol dependence with withdrawal, uncomplicated (principal); F17.210 Nicotine dependence, cigarettes, uncomplicated; F10.280 Alcohol dependence with alcohol-induced anxiety disorder; F10.282 Alcohol dependence with alcohol-induced sleep disorder; F10.24 Alcohol dependence with alcohol-induced mood disorder; D64.9 Anemia, unspecified; I10 Essential (primary) hypertension; K21.9 Gastro-esophageal reflux disease without esophagitis; Z86.19 Personal history of other infectious and parasitic diseases; Z87.19 Personal history of other diseases of the digestive system
CPT/HCPCS: 87811; C9803-CS; U0003; U0005